=== PATIENT | male | born 1940 | race Caucasian/White ===

== ENCOUNTER → 2017-02-21 | Outpatient (CLI) | payer OTHER ==
[~2017-02-21] MED LIST: ASCO1CAP3 PO; COLE1TAB PO; DOCU-94 PO; FRS/40 PO; IBUP-1451 PO; KETO2CRE14 TOP; LOSA100T2 PO; MOMETASONE FUROATE TOP; MULT-506 PO; OPTIRAY 300 IV PRN; OXYC7.5T78 PO; PROB1TAB16 PO; SULF800T23 PO; [UNRECOGNIZED DRUG - CODE] TOP; [UNRECOGNIZED DRUG - OTHER] INJ
--- NOTE | 2017-02-21 13:31 | DIAGNOSTIC IMAGING REPORT ---
CHEST 2 VIEWS ROUTINE CLINICAL HISTORY: 77 years-old Male presenting with postop, history of bladder cancer. TECHNIQUE: PA and bilateral oblique views of the chest were obtained. COMPARISON: 08/21/2016. FINDINGS: Cardiomediastinal silhouette normal. Pleural thickening along the right lower chest wall, chronic. Lungs and pleural spaces otherwise clear. Osseous structures and upper abdomen normal. IMPRESSION: 1. No acute cardiopulmonary disease. Electronically signed by: Emmanuel Corral M.D. 02/21/2017 1:30 PM Dictated Date/Time: 02/21/2017 1:28 PM
--- NOTE | 2017-02-21 14:20 | DIAGNOSTIC IMAGING REPORT ---
IV PYELOGRAM CLINICAL HISTORY: Gross hematuria. History of bladder neoplasm. History of cystectomy in 2015. COMPARISON STUDY: Abdominal CT scans dated 08/21/2016 and 02/12/2016. TECHNIQUE: An abdominal yarding engineer radiograph is performed. IVP pyelogram was then performed following the IV administration of iodinated contrast, tomographic images are acquired in the corticomedullary and excretory phases of enhancement. Overhead views of the renal collecting system and bladder were obtained in multiple obliquities both pre and post void. FINDINGS: Abdominal yarding engineer radiograph shows a nonobstructed abdominal bowel gas pattern. There is moderate colonic fecal retention. Cholecystectomy clips are noted. The skeletal structures are osteopenic and there is moderate lumbosacral spondylosis. Following contrast administration there is symmetric renal cortical enhancement. There is slightly delayed excretion from the left kidney. There is no right-sided hydronephrosis. There is moderate left-sided hydroureteronephrosis. The left ureter is dilated into the right lower quadrant towards the urine conduit. No filling defects identified within the right renal pelvis or along the course of the right ureter. No clear filling defects identified within the left renal collecting system or the partially opacified left ureter. IMPRESSION: 1. There is moderate left hydroureteronephrosis, with the left ureter dilated into the right lower quadrant at the ileal conduit. 2. There is no right-sided hydronephrosis. 3. No clear filling defect is seen within the renal pelvis bilaterally or along the ureters. 4. Hydronephrosis is similar to the 08/21/2016 CT scan and has worsened from the 02/12/2016 CT scan. There is a questionable filling defect identified in the very distal left ureter on the outside CT scan, and a distal urothelial lesion is not excluded. This is not well assessed on today's IV pyelogram. Electronically signed by: Ankush Colindres M.D. 02/21/2017 2:19 PM Dictated Date/Time: 02/21/2017 2:14 PM
== END | disposition home or self-care (01) ==
LOC: C.RAD 12:20
PROVIDERS: ATTEND Urology
DX: R31.0 Gross hematuria (principal); N13.30 Unspecified hydronephrosis; Z85.51 Personal history of malignant neoplasm of bladder; M85.89 Other specified disorders of bone density and structure, multiple sites

== ENCOUNTER → 2017-03-20 | Day surgery (SDC) | payer OTHER ==
[2017-03-10 10:24] VITALS: BMI 41.0
--- NOTE | 2017-03-10 10:54 | PAT Medication Instructions ---
Service Date Mar 10, 2017. Current Home Medication List Ascorbic Acid (Vitamin C), 500 MG PO QAM Colestipol Hcl (Colestid), 0.5-1 GM PO PRN Docusate Sodium (Colace), 1 CAP PO DAILY PRN for Constipation Furosemide (Lasix), 40 MG PO BID Ibuprofen Tab (Motrin), 800 MG PO TID PRN for N Ketoconazole 2% (Nizoral 2%), 1 DOSE TOP PRN Losartan Potassium & Hydrochlo (Hyzaar), 25 MG PO QPM Multivitamin (Multivitamin), 1 TAB PO QAM Oxycodone/Acetaminophen 5MG/325MG (Percocet 5MG/325MG), 1-2 TABLETS PO Q4 PRN for Pain Probiotic Product (Probiotic), 1 TAB PO QAM [Clotrimazole-Beta], 1 DOSE TOP PRN [Dihydrotesterone], 1 DOSE INJ [id number] [Mometasone Furoate ], 1 DOSE TOP PRN Medication Instructions For Your Scheduled Surgery [Dihydrotesterone], 1 DOSE INJ [id number] (continue as directed) - Check with surgeon for instructions: Ibuprofen Tab (Motrin), 800 MG PO TID PRN for N - Hold the following medications 24 hours prior to surgery: [Mometasone Furoate ], 1 DOSE TOP PRN [Clotrimazole-Beta], 1 DOSE TOP PRN Ketoconazole 2% (Nizoral 2%), 1 DOSE TOP PRN - Hold the following medications the morning of surgery: Probiotic Product (Probiotic), 1 TAB PO QAM Multivitamin (Multivitamin), 1 TAB PO QAM Colestipol Hcl (Colestid), 0.5-1 GM PO PRN Docusate Sodium (Colace), 1 CAP PO DAILY PRN for Constipation Furosemide (Lasix), 40 MG PO BID Ascorbic Acid (Vitamin C), 500 MG PO QAM - Take the following medications the morning of surgery with a sip of water: Oxycodone/Acetaminophen 5MG/325MG (Percocet 5MG/325MG), 1-2 TABLETS PO Q4 PRN for Pain (okay to take up to 4 hours prior to surgery if needed) - Hold the following medications as scheduled the night before surgery: Losartan Potassium & Hydrochlo (Hyzaar), 25 MG PO QPM - Take the following medications as scheduled the night before surgery: Colestipol Hcl (Colestid), 0.5-1 GM PO PRN (if needed) Docusate Sodium (Colace), 1 CAP PO DAILY PRN for Constipation (if needed) Furosemide (Lasix), 40 MG PO BID Oxycodone/Acetaminophen 5MG/325MG (Percocet 5MG/325MG), 1-2 TABLETS PO Q4 PRN for Pain (if needed) If you have any questions please call us at [phone] or [phone] or [phone]
--- NOTE | 2017-03-10 11:25 | DIAGNOSTIC IMAGING REPORT ---
TWO VIEW CHEST CLINICAL HISTORY: Preoperative examination FINDINGS: PA and lateral chest radiographs are compared to study dated 02/21/2017 and correlated with chest CT dated 02/12/2016. The examination is degraded by large body habitus. The heart is top normal in size and there is atherosclerotic calcification of the thoracic aorta. Diffuse interstitial thickening and emphysematous change is similar to previous. Bibasilar airspace opacities likely represent atelectasis. No pleural effusion or pneumothorax is seen. The skeletal structures are osteopenic. The bony thorax is grossly intact. 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 Calcific tendinopathy is noted in the left shoulder. IMPRESSION: 1. Emphysema and chronic changes are similar to previous. 2. Bibasilar airspace opacities likely represent atelectasis. No acute cardiopulmonary abnormality is seen. Electronically signed by: Ankush Colindres M.D. 03/10/2017 11:24 AM Dictated Date/Time: 03/10/2017 11:22 AM
[2017-03-10 12:04] LABS: BASO % 0.4 %; BASO ABS # 0.03 K/uL (0-0.2); COMPLETE YES; HEMATOCRIT 51.3 % (42-52); LYMPH % 12.5 %; LYMPH ABS # 1.01 K/uL (1.2-3.4); MEAN CELL VOLUME 93.1 fL (80-100); MEAN CORPUSCULAR HEMOGLOBIN 29.8 pg (25-34); MEAN PLATELET VOLUME 9.1 fL (7.4-10.4); MONO % 7.4 %; NEUT % 76.7 %; PLATELET COUNT 204 K/uL (130-400); RED BLOOD COUNT 5.51 M/uL (4.7-6.1); WHITE BLOOD COUNT 8.09 K/uL (4.8-10.8)
[2017-03-10 12:14] LABS: BUN/CREATININE RATIO 21.5 (10-20); CALCIUM 9.6 mg/dl (8.5-10.1); CREATININE 1.2 mg/dl (0.60-1.40); POTASSIUM 4.5 mmol/L (3.5-5.1)
[2017-03-10 12:17] LABS: URINE APPEARANCE TURBID (CLEAR); URINE BILIRUBIN NEG (NEG); URINE COLOR YELLOW; URINE EPITHELIAL CELL AUTO >30 /lpf (0-5); URINE NITRITE POS (NEG); URINE PH >= 9.0 (4.5-7.5); URINE SPECIFIC GRAVITY 1.014 (1.000-1.030); UROBILINOGEN NEG (NEG)
[2017-03-10 12:37] LABS: MANUAL MICROSCOPIC REQUIRED? NO; REVIEW REQ? YES; SULFASALICYLIC ACID NEG (NEG)
[~2017-03-20] VITALS: Ht 177.8 cm; Wt 131.3 kg
[~2017-03-20] MED LIST changes: +ATROPINE SULFATE 0.1 MG/ML 5ML SYR IV PRN; +CEFAZOLIN 3000 MG/65 ML D5W IV SCH; +CIPROFLOXACIN / D5W 400 MG IV SCH; +CONRAY 30% 150ML BOTTLE ONE; +EpHEDrine SULFATE INJ 50 MG/ML AMP IV PRN; +FENTANYL CITRATE INJ 50 MCG/1 ML 2 ML VIAL IV PRN; +FENTANYL CITRATE INJ 50 MCG/1 ML 2 ML VIAL ONE; +FLUMAZENIL 0.1 MG/1 ML 10 ML VIAL IV PRN; +GENTAMICIN INJ 120 MG in DEXTROSE 5% 100ML 100 ML IV SCH; +LABETALOL HCL IV 5 MG/ML 20ML IV PRN; +LACTATED RINGER'S 1000ML 1,000 ML IV SCH; +LARYING-O-JET KIT (LTA) ONE; +LIDOCAINE HCL 2% 2 ML VIAL (20MG/ML) ONE; +NALOXONE HCL 0.4 MG/1 ML VIAL/CARP IV PRN; +ONDANSETRON INJ 2 MG/ML 2 ML VIAL IV PRN; -OPTIRAY 300 IV PRN; +OXYCODONE/ACETAMINOPHEN 5-325 TAB PO PRN; +PHENYLEPHRINE 100MCG/ML 5ML SYR ONE; +PHENYLEPHRINE HCL INJ 10 MG/ML VIAL ONE; +PROMETHAZINE HCL INJ 12.5 MG in SODIUM CHLORIDE 0.9% 50ML 50 ML IV PRN; +PROPOFOL IV EMULSION 10 MG/ML 20 ML VIAL IV ONE; +ROCURONIUM BROMIDE 10 MG/ML 5 ML VIAL IV ONE; +SUCCINYLCHOLINE CHLORIDE 20 MG/ML 10 ML VIAL IV ONE
[2017-03-20 09:44] VITALS: Ht 177.8 cm; Wt 131.3 kg
--- NOTE | 2017-03-20 11:58 | History & Physical Bridge Note ---
H&P Re-Evaluation Bridge Note: I have examined the patient, reviewed the History & Physical and in the interval since the performance of the History & Physical I have noted the following changes of clinical significance: No changes noted
--- NOTE | 2017-03-20 14:33 | Discharge Instructions ---
Discharge Instructions Date of Service Mar 20, 2017. Admission Reason for Admission: Left Hydronephrosis & Bladder Cancer Discharge Discharge Diagnosis / Problem: Left ureteral stricture Discharge Goals Goal(s): Improve function, Improve disease control, Therapeutic intervention Activity Recommendations Activity Limitations: as noted below Lifting Limitations: no more than 25 pounds, gradually increase as tolerated ( over 5 days) Exercise/Sports Limitations: rest today, gradually increase as tolerated (over 5 days) May Resume Sexual Activity: when tolerated Shower/Bathe: tomorrow (no tub bath) Driving or Machine Use: resume 1 day after discharge . Instructions / Follow-Up Instructions / Follow-Up In [place] office Mar 24 at 10:[address] Uribe for removal of nephrostomy tube. As scheduled Apr 02 at 10:[address] Glez for postop check. Discharge Diet Recommended Diet: Regular Diet (good fluid intake) Procedures Procedures Performed: Percutaneous Antegrade Pyelogram and Ureteroscopy; Ureteral Balloon Dilation; Placement of Ureteral Stent and Nephrostomy Tube; Nephrostogram for Placement of Nephrostomy Tube Pending Studies Studies pending at discharge: no Medical Emergencies . Who to Call and When: Medical Emergencies: If at any time you feel your situation is an emergency, please call 911 immediately. . Non-Emergent Contact Non-Emergency issues call your: Urologist Call Non-Emergent contact if: you have a fever, temperature is above 101, your pain is not controlled, your pain is worsening, your pain is unusual for you, your pain is concerning you, you have any medication questions . . "Provider Documentation" section prepared by John Glez. . VTE Core Measure Inpt VTE Proph given/why not?: SCD's
--- NOTE | 2017-03-20 14:40 | [facility] Operative Report ---
Operative Report Operative Date Mar 20, 2017. Pre-Operative Diagnosis History of Bladder Cancer and Ileal conduit with Progressive Left Hydronephrosis Post-Operative Diagnosis Left Ureteral Stricture, no tumor noted Procedure(s) Performed Percutaneous Antegrade Pyelogram and Ureteroscopy; Ureteral Balloon Dilation; Placement of Ureteral Stent and Nephrostomy Tube; Nephrostogram for Placement of Nephrostomy Tube Surgeon Dr. Omar Glez Furniture Designer Surgeon(s) Dr. Deng Uribe Estimated Blood Loss 5 cc Findings Ureteral stenosis with no tumor on antegrade pyelography or direct visualization with ureteroscope, balloon dilated x 3 minutes over 2 contiguous areas of ureter, good stent and 10fr nephrostomy position on fluoroscopy. Specimens None per surgeon Drains 7 fr 28 cm single J ureteral stent distal loop removed, 10 fr nephrostomy Anesthesia GAET Complication(s) None Disposition Recovery Room / PACU Indications Patient is a 77-year-old male who is approximately 2 years status post robotic cystectomy for aggressive bladder cancer. He has been ALONDRA since but has been found to have progressive left-sided hydronephrosis on serial imaging this year. Nephrostomy tube is being placed for renal decompression and patient is being brought in for antegrade evaluation of the obstructed area with the expected findings of tumor versus stricture. Please see H&P for further details. Patient was double covered with antibiotics intravenously and SCDs used for DVT prophylaxis. Description of Procedure Patient was properly identified and brought to the operative suite after identification of appropriate consent of the chart. General anesthesia with endotracheal intubation was initiated and patient was prepped and draped in the standard fashion for this procedure. Full timeout procedure was followed. Patient was placed in a left flank up lateral position on a beanbag with generously padded pressure points an axillary roll. Care was taken to avoid hyperextension of his arm seen his previous history of neuropraxia. Using fluoroscopic guidance a nephrostogram was performed via the patient's indwelling nephrostomy tube. This demonstrated opacification of the collecting system and the ureter could be traced to the point of obstruction in proximity to the ileal conduit. Using a commodity specialist ureteral catheter a sensor tip wire was able to be advanced down the ureter and this was able to be passed into the ileal conduit without difficulties. A dual-lumen catheter was advanced into the kidney and a second working sensor tip wire was able to be advanced without difficulties or resistance. 15 blade was used to enlarge skin incision around the wires and a 07/10 25 cm ureteral access sheath was advanced into the lower pole calyx with a nephrostomy tube in placed. This was followed by a flexible fiberoptic ureteroscope which was able to be navigated down the ureter and to the level of obstruction. At this point bland stricture of the ureter was noted with no evidence of mucosal abnormality or papillary tumor. Retrogrades performed through the ureteroscope confirmed smooth, bland approximately 3 cm obstruction of the ureter. This was felt to be most consistent with stricture. No biopsies were taken. Working wire was replaced and ureteroscope was backloaded out of the access sheath. A 15 [place] ureteral balloon dilator was advanced under fluoroscopic guidance and on 2 separate passes for 3 minutes apiece ureteral stricture was dilated to 14 anabelle. The stenotic area could be seen opening up on fluoroscopy. After this was complete a 7 [place] 28 cm ureteral stent was used to stent the obstructed ureter after removing the distal coil to discourage peristalsis out of the ileal conduit. This was also appreciated to be in good position on fluoroscopic evaluation. A 10 [place] loupe nephrostomy tube was advanced into the renal pelvis after re-opacifying it with contrast. This was also noted to be in good position and not engaged with the ureteral stent. Nephrostogram after completion of case demonstrated easy flow of contrast through the ureter into the ileal conduit. Nephrostomy tube was clamped seen the patency of the stent. Sterile dressings were placed and anesthesia was reversed. Patient was transferred to the recovery room in stable condition. Follow-up care: Patient will be discharged home with prescription for Bactrim. We'll remove the nephrostomy in approximately 5 days' time as long as he maintains asymptomatic. Postoperative appointments are confirmed. Patient's instructed to contact our service should he note any fevers, chills, nausea, vomiting or other difficulties in the postoperative period I attest to the content of the Intraoperative Record and any orders documented therein. Any exceptions are noted below.
[2017-03-20 15:20] VITALS: BP 187/82; PULSE 90; TEMP 36.6; O2SAT 95
--- NOTE | 2017-03-20 15:33 | Anesthesiology Progress Note ---
Anesthesia Post Op Note Date & Time Mar 20, 2017 at 15:33 Vital Signs Pain Intensity: 0 Vital Signs Past 12 Hours Date Time Temp Pulse Resp B/P (MAP) Pulse Ox O2 Delivery O2 Flow Rate FiO2 03/20/17 15:10 36.1 88 20 156/82 92 Room Air 03/20/17 15:05 85 20 156/82 92 Room Air 03/20/17 14:55 81 20 181/96 94 Room Air 03/20/17 14:47 82 20 169/80 94 Room Air 03/20/17 14:35 76 20 169/100 100 Mask 10 03/20/17 14:25 74 18 170/97 100 Mask 10 03/20/17 14:16 36.5 72 18 183/91 100 Mask 10 Notes Mental Status: alert / awake / arousable, participated in evaluation Pt Amnestic to Procedure: Yes Nausea / Vomiting: adequately controlled Pain: adequately controlled Airway Patency, RR, SpO2: stable & adequate BP & HR: stable & adequate Hydration State: stable & adequate Anesthetic Complications: no major complications apparent
[2017-03-20 15:50] VITALS: BP 175/83; PULSE 88; O2SAT 95
[2017-03-20 16:20] VITALS: BP 168/82; PULSE 102; TEMP 36.6; O2SAT 95
--- NOTE | 2017-03-21 11:35 | DIAGNOSTIC IMAGING REPORT ---
RETROGRADE INCLUDES KUB HISTORY: URETEROSCOPY, STENT PLACEMENT FLUOROSCOPY TIME: 7 minutes and 28 seconds FINDINGS: 10 fluoroscopic spot images were submitted for review. Initial image demonstrates contrast opacification of the left renal collecting system and ureter through the indwelling percutaneous prostate tube on the left. A ureteral stent is identified. A balloon sweep was performed. IMPRESSION: Fluoroscopy provided for left ureteroscopy and stent placement. Electronically signed by: Surya Bonds M.D. 03/21/2017 11:34 AM Dictated Date/Time: 03/21/2017 11:32 AM
== END | disposition home or self-care (01) ==
LOC: C.ACU 09:22
PROVIDERS: ATTEND Urology
DX: N40.1 Benign prostatic hyperplasia with lower urinary tract symptoms (principal); N13.8 Other obstructive and reflux uropathy; C67.9 Malignant neoplasm of bladder, unspecified; N35.9 Urethral stricture, unspecified; N39.0 Urinary tract infection, site not specified; M19.90 Unspecified osteoarthritis, unspecified site; I10 Essential (primary) hypertension; Z98.42 Cataract extraction status, left eye; Z90.49 Acquired absence of other specified parts of digestive tract; Z83.3 Family history of diabetes mellitus; Z87.891 Personal history of nicotine dependence; J44.9 Chronic obstructive pulmonary disease, unspecified; Z85.51 Personal history of malignant neoplasm of bladder; Z85.46 Personal history of malignant neoplasm of prostate; E66.01 Morbid (severe) obesity due to excess calories

== ENCOUNTER → 2017-08-11 | Outpatient (CLI) | payer OTHER ==
[~2017-08-11] MED LIST changes: -ATROPINE SULFATE 0.1 MG/ML 5ML SYR IV PRN; -CEFAZOLIN 3000 MG/65 ML D5W IV SCH; -CIPROFLOXACIN / D5W 400 MG IV SCH; -CONRAY 30% 150ML BOTTLE ONE; -EpHEDrine SULFATE INJ 50 MG/ML AMP IV PRN; -FENTANYL CITRATE INJ 50 MCG/1 ML 2 ML VIAL IV PRN; -FENTANYL CITRATE INJ 50 MCG/1 ML 2 ML VIAL ONE; -FLUMAZENIL 0.1 MG/1 ML 10 ML VIAL IV PRN; -GENTAMICIN INJ 120 MG in DEXTROSE 5% 100ML 100 ML IV SCH; -LABETALOL HCL IV 5 MG/ML 20ML IV PRN; -LACTATED RINGER'S 1000ML 1,000 ML IV SCH; -LARYING-O-JET KIT (LTA) ONE; -LIDOCAINE HCL 2% 2 ML VIAL (20MG/ML) ONE; -NALOXONE HCL 0.4 MG/1 ML VIAL/CARP IV PRN; -ONDANSETRON INJ 2 MG/ML 2 ML VIAL IV PRN; +OPTIRAY 300 IV PRN; -OXYC7.5T78 PO; -OXYCODONE/ACETAMINOPHEN 5-325 TAB PO PRN; -PHENYLEPHRINE 100MCG/ML 5ML SYR ONE; -PHENYLEPHRINE HCL INJ 10 MG/ML VIAL ONE; -PROMETHAZINE HCL INJ 12.5 MG in SODIUM CHLORIDE 0.9% 50ML 50 ML IV PRN; -PROPOFOL IV EMULSION 10 MG/ML 20 ML VIAL IV ONE; -ROCURONIUM BROMIDE 10 MG/ML 5 ML VIAL IV ONE; -SUCCINYLCHOLINE CHLORIDE 20 MG/ML 10 ML VIAL IV ONE
--- NOTE | 2017-08-11 14:26 | DIAGNOSTIC IMAGING REPORT ---
IVP W/OR W/O TOMOGRAMS CLINICAL HISTORY: N13.30 Hydronephrosis. Follow-up. COMPARISON STUDY: IVP 05/30/2017. FINDINGS: Cash Poster films demonstrate removal of the left-sided ureteral stent. The patient is status post prior cystectomy with ileal loop diversion and a right lower quadrant ostomy site. Following the intravenous injection of contrast there is prompt and symmetric perfusion of the kidneys. No hydronephrosis. No suspicious filling defects within the opacified renal collecting systems or ureters. The ureters extend to the right lower quadrant ostomy site. IMPRESSION: 1. Postsurgical changes consistent with prior cystectomy and right lower quadrant ileal conduit. 2. No hydronephrosis. 3. The left ureteral stent has been removed. Electronically signed by: Surya Bonds M.D. 08/11/2017 2:19 PM Dictated Date/Time: 08/11/2017 2:17 PM
== END | disposition home or self-care (01) ==
LOC: C.RAD 12:04
PROVIDERS: ATTEND Urology
DX: Z93.6 Other artificial openings of urinary tract status (principal)

== ENCOUNTER → 2017-12-05 | Outpatient (CLI) | payer OTHER ==
[~2017-12-05] MED LIST changes: -SULF800T23 PO
--- NOTE | 2017-12-05 15:31 | DIAGNOSTIC IMAGING REPORT ---
IVP W/OR W/O TOMOGRAMS HISTORY: 77 years-old Male N13.30 [id number] Bladder [id number] history of prior cystectomy COMPARISON: IVP 08/11/2017 TECHNIQUE: IVP with tomograms was obtained utilizing 100 mL Optiray 300 FINDINGS: District Court Administrator image demonstrates surgical clips of the right upper abdomen suggesting prior cholecystectomy. Nonobstructive bowel gas pattern. Severe degenerative changes about the lumbar spine. No definite urolith identified. There is prompt and symmetric perfusion of the bilateral kidneys. No hydronephrosis or focal filling defects identified within the collecting systems. Evidence of prior cystectomy with right lower quadrant ileal conduit. Contrast in the bilateral ureters and renal collecting systems noted on the postvoid image. Ureters extends to the right lower quadrant ileostomy site. IMPRESSION: 1. Postoperative changes from prior cystectomy with right lower quadrant ileal conduit. 2. No hydronephrosis or suspicious filling defects identified. The above report was generated using voice recognition software. It may contain grammatical, syntax or spelling errors. Electronically signed by: Jimy Todd M.D. 12/05/2017 3:29 PM Dictated Date/Time: 12/05/2017 3:24 PM
== END | disposition home or self-care (01) ==
LOC: C.RAD 12:31
PROVIDERS: ATTEND Urology
DX: C67.9 Malignant neoplasm of bladder, unspecified (principal); N13.30 Unspecified hydronephrosis

== ENCOUNTER 2021-05-27 00:19 | Inpatient (IN) ==
[2021-05-27] MEDS ORDERED: dexAMETHasone**PF** 10 MG/ML VIAL IV ONE (00:35)
[2021-05-27 00:58] LABS: Basophils # (auto) 0.03 K/uL (0-0.2); Basophils % (auto) 0.3 %; Eosinophils # (auto) 0.15 K/uL (0-0.5); Eosinophils % (auto) 1.7 %; Hematocrit (blood only) 41.9 % (42-52); Immature Granulocytes % (auto) 2.3 %; Lymphocytes # (auto) 0.68 K/uL (1.2-3.4); Lymphocytes % (auto) 7.9 %; Mean Corpuscular Hemoglobin 30.4 pg (25-34); Mean Corpuscular Hgb Conc 33.4 g/dL (32-36); Mean Corpuscular Volume 90.9 fL (80-100); Mean Platelet Volume 9.2 fL (7.4-10.4); Monocytes # (auto) 0.64 K/uL (0.11-0.59); Monocytes % (auto) 7.5 %; Neutrophils # (auto) 6.88 K/uL (1.4-6.5); Neutrophils % (auto) 80.3 %; Platelet Count 290 K/uL (130-400); RDW Coefficient of Variation 14.2 % (11.5-14.5); RDW Standard Deviation 47.2 fL (36.4-46.3); Red Blood Count 4.61 M/uL (4.7-6.1); White Blood Count 8.58 K/uL (4.8-10.8)
--- NOTE | 2021-05-27 01:31 | Emergency Department Note ---
Impression & Plan 2019 novel coronavirus-infected pneumonia (NCIP), Hypoxia, Weakness, Decrease in appetite, Cough ED Provider Note Provider: Young Traore MD DATE OF SERVICE: 05/26/2021 CHIEF COMPLAINT: Shortness breath, weakness, decreased appetite HISTORY OF PRESENT ILLNESS: Patient is a 81-year-old gentleman past medical history including prostatectomy with history of bladder cancer, and UTI presenting here today brought by family due to worsening weakness, shortness of breath, and some decreased appetite. Patient himself states he feels very fatigued. Patient states is not vaccinated for Covid. Patient denies significant chest pain or abdominal pain. Denies significant nausea vomiting or diarrhea. Patient denies significant headache at this time. Patient states he has been very weak and had a minor fall the other day but denies falling today. Denies striking his head during this. Patient asked that I get additional information from his daughter via phone. Breathing is worse with exertion Daughter Katelynn was contacted reports that he initially began to have symptoms about 3 weeks ago with limited appetite and not eating as well. Then developed a bit of runny nose and cough and tested positive on May 18 for Covid. Receive the Covid monoclonal antibody on May 22 and his primary doctor put him on some albuterol and Pulmicort nebulized treatments. The patient did not tolerate these well and refused more of them and has not had them in several days. They got a pulse ox today and noted that his pulse ox at home was doing 80 to 87%. They were unsure how long he may have been here as again they just received this pulse ox today. Patient has also been noted to be more fatigued and sleeping more although the patient himself states while he has been very fatigued he is not actually getting restful sleep. Over the last several days there have been some minor low-grade fevers but the higher fevers earlier in the course have resolved. REVIEW OF SYSTEMS: A total of 10 review of systems was obtained and negative except as stated above in the HPI. PAST MEDICAL HISTORY: As noted above MEDICATIONS: Reviewed home medications SOCIAL HISTORY: Distant former smoker, lives at home with PHYSICAL EXAM: GENERAL: alert and oriented in no acute distress on stretcher but quite fatigued appearing Head: normocephalic and atraumatic EYES: No injection, discharge or icterus. NECK: Trachea midline. Supple. ENT: Mucous membranes pink and moist. LUNGS: Airway patent. No retractions but moderately tachypneic. Breath sounds clear with good air entry bilaterally. HEART: Regular rate and rhythm. No chest wall tenderness ABDOMEN: Soft and non-tender, without guarding or rebound patient does have a anterior abdominal wall urostomy site. SKIN: Acyanotic, warm, dry, without rashes EXTREMITIES: patient reports chronic stable 1+ lower extremity edema. No si gnificant tenderness of the lower extremities. NEUROLOGICAL: No aphasia. No facial droop or slurred speech. Able to transfer from wheelchair to bed with minimal assist but a bit unsteady. Patient with chronic he reports weakness in the right upper extremity. EK bpm sinus rhythm with first-degree AV block. Right bundle branch and left anterior fascicular block is noted without acute ST segment elevation with some V1 and V2 T wave inversions noted. QTc 488. CONTINUOUS CARDIAC MONITORING: was ordered and showed a heart rate of 70s to 90sbpm in sinus rhythm with right bundle branch block and first-degree AV block 1 view chest x-ray per my interpretation:Patient with some diffuse infiltrate findings on the x-ray consistent with a viral pattern/COVID without significant pleural effusions or pneumothorax. No significant cardiomegaly noted. Patient's laboratory studies and imaging reviewed. Differential includes Infection, dehydration, metabolic abnormality, hypo/hyperglycemia, electrolyte disturbance, anemia, hypoxia, cardiac sources, intracerebral event, toxicologic, neurologic, as well as other pathologies. IMPRESSION/MEDICAL DECISION MAKING: Patient not vaccinated for Covid now about 3 weeks of the symptoms with shortness of breath found to be hypoxic. Requiring several liters of oxygen supplementation here. Some mild chronic lower extremity edema but no gross ev idence of fluid overload. Patient with benign abdomen denies chest pain. EKG obtained without acute STEMI. Chest x-ray concerning for diffuse inflammatory process. Patient afebrile upon arrival here. No significant anemia and no significant leukocytosis is noted. Repeat Covid test to confirm infection was completed here. Patient again was notable to receive the monoclonal antibody on the . Sodium, calcium, and renal function appears stable. ALT not elevated. Troponin is undetectably low which is somewhat reassuring given his hypoxia of unknown duration with this illness. TSH within normal limits. AST, magnesium, potassium be recollected as the initial tube hemolyzed. Given his weakness and fatigue believe this is likely related to Covid and lower suspicion at this time for acute aortic dissection (patient is pain-free) or PE. Updated the patient at bedside. Did update the patient's daughter upon initial evaluation of his need for hospitalization and oxygen use. Will defer any additional IV fluid supplementation at this point as he does not appear hypovolemic. The hospitalist be consulted for further inpatient care. Patient's daughter to call with med list when she gets home. DIAGNOSIS: COVID-19 pneumonia, hypoxia, weakness DISPOSITION: Hospitalist will evaluate Patient was agreeable with this plan. Contact Patient's daughter Katelynn at home phone in chart as needed. Past Med/Surg History Surgical History History of cataract surgery History of cholecystectomy Family History Grandmother Diabetes Family/Other Diabetes Cancer Brother Cancer Sister Cancer Social History Smoking Status: Former smoker Tobacco Type: Cigarettes Hx Alcohol Use: No marital status: current occupational status: retired Feels Safe at Home: Yes Allergies Allergies Allergy/AdvReac Type Severity Reaction Status Date / Time Cipro Allergy Unknown HIVES Verified 03/20/17 09:49 ciprofloxacin Allergy Unknown HIVES Verified 03/30/21 09:57 Home Meds Home Medications Medication Instructions Recorded Confirmed CLOTRIMAZOLE-BETA 1 dose TOPICAL PRN #0 08/19/14 03/30/21 Furosemide (Lasix) 40 mg PO BID #0 tab 08/19/14 03/30/21 Ketoconazole 2% (Nizoral 2%) 1 dose TOPICAL PRN #0 08/19/14 03/30/21 MOMETASONE FUROATE 1 dose TOPICAL PRN #0 08/19/14 03/30/21 Multivitamin 1 tab PO QAM #0 tab 08/19/14 03/30/21 LOSARTAN POTASSIUM & HYDROCHLO 25 mg PO QPM #0 09/01/14 03/30/21 (HYZAAR) DOCUSATE SODIUM (COLACE) 1 cap PO DAILY PRN 30 Days #60 cap 03/21/15 03/30/21 ASCORBIC ACID (VITAMIN C) 500 mg PO QAM #0 03/10/17 03/30/21 COLESTIPOL HCL (COLESTID) 0.5 - 1 g PO PRN #0 tab 03/10/17 03/30/21 DIHYDROTESTERONE 1 dose INJ [id number] #0 03/10/17 03/30/21 Ibuprofen Tab (MOTRIN) 800 mg PO TID PRN #0 tab 03/10/17 03/30/21 PROBIOTIC PRODUCT (PROBIOTIC) 1 tab PO QAM #0 03/10/17 03/30/21 Saccharomyces boulardii 250 mg mg PO 11/16/19 03/30/21 capsule ascorbic acid (vitamin C) 500 mg PO 11/16/19 03/30/21 tablet clotrimazole-betamethasone 1 applic TOP 11/16/19 03/30/21 %-0.05 % topical cream colestipol 1 gram tablet g PO 11/16/19 03/30/21 dihydrotestosterone prop(bulk) 100 % MS 11/16/19 03/30/21 % powder docusate sodium 100 mg capsule 100 mg PO BID cap 11/16/19 03/30/21 furosemide 80 mg tablet mg PO 11/16/19 03/30/21 hydralazine 50 mg tablet 50 mg PO tab 11/16/19 03/30/21 hydrocodone 5 mg-acetaminophen 325 1 tab PO .COMPLEX tab 11/16/19 03/30/21 mg tablet ketoconazole 2 % topical cream 1 appln TOP gm 11/16/19 03/30/21 losartan 25 mg tablet 25 mg PO DAILY tab 11/16/19 03/30/21 mometasone 0.1 % topical ointment 1 appln TOP gm 11/16/19 03/30/21 multivitamin (Daily Multi-Vitamin) 1 tab PO DAILY 11/16/19 03/30/21 nystatin 100,000 unit/gram topical 1 appln TOP .COMPLEX gm 11/16/19 03/30/21 powder Results & Data (ED) Vital Signs Vital Signs - 24 hr 05/27/21 00:29 05/27/21 00:53 05/27/21 01:05 Temperature 36 C L Temperature Source Temporal Artery Scan Pulse Rate 91 H Pulse Rate [Finger] 87 Respiratory Rate 16 Respiratory Effort / Characteristics Non-Labored Spontaneous Respiratory Depth Normal Blood Pressure 152/76 H Blood Pressure [Left Arm] 154/78 H Blood Pressure Mean 101 Blood Pressure Mean [Left Arm] 103 Pulse Oximetry 89 L 86 L 95 Oxygen Delivery Method Room Air Nasal Cannula Nasal Cannula Oxygen Flow Rate 0 3 Sepsis Recent Fever Within 48 Hours Yes Sepsis New/Unexplained Change in Mental Status No Sepsis Action Taken by Nursing No Action Required Oxygen Flow Rate - Titration 3 Pulse Oximetry Post Tiitration 96 Laboratory Data Result diagrams: 05/27/21 00:49 05/27/21 00:49 Lab Results 05/27/21 05/27/21 05/27/21 Range/Units 00:49 00:49 00:49 WBC 8.58 (4.8-10.8) K/uL RBC 4.61 L (4.7-6.1) M/uL Hgb 14.0 (14.0-18.0) g/dL Hct 41.9 L (42-52) % MCV 90.9 (80-100) fL MCH 30.4 (25-34) pg MCHC 33.4 (32-36) g/dL RDW Std Deviation 47.2 H (36.4-46.3) fL RDW Coeff of Felicia 14.2 (11.5-14.5) % Plt Count 290 (130-400) K/uL MPV 9.2 (7.4-10.4) fL Immature Gran % (Auto) 2.3 % Neut % (Auto) 80.3 % Lymph % (Auto) 7.9 % Reeves % (Auto) 7.5 % Eos % (Auto) 1.7 % Baso % (Auto) 0.3 % Neut # (Auto) 6.88 H (1.4-6.5) K/uL Lymph # (Auto) 0.68 L (1.2-3.4) K/uL Reeves # (Auto) 0.64 H (0.11-0.59) K/uL Eos # (Auto) 0.15 (0-0.5) K/uL Baso # (Auto) 0.03 (0-0.2) K/uL Immature Gran # (Auto) 0.20 H (0.00-0.02) K/uL PT Cancelled INR Cancelled APTT Cancelled PTT Ratio Cancelled Sodium 137 (136-145) mmol/L Potassium (3.5-5.1) mmol/L Chloride 104 (98-107) mmol/L Carbon Dioxide 28 (21-32) mmol/L Anion Gap 5.0 (3-11) BUN 21 H (7-18) mg/dl Creatinine 1.33 (0.6-1.4) mg/dl Est Cr Clr Drug Dosing 59.0 ml/min Est GFR ( Amer) 56.9 ml/min Est GFR (Non-Af Amer) 49.1 ml/min BUN/Creatinine Ratio 16.1 (10-20) Glucose 104 H (70-99) mg/dl Calcium 9.1 (8.5-10.1) mg/dl Magnesium (1.8-2.4) mg/dl Total Bilirubin 0.7 (0.2-1) mg/dl AST (15-37) U/L ALT 47 (12-78) U/L Alkaline Phosphatase 102 (45-117) U/L Troponin I < 0.015 (0-0.045) ng/ml Total Protein 8.0 (6.4-8.2) gm/dl Albumin 2.3 L (3.4-5.0) gm/dl Globulin 5.7 H (2.5-4.0) gm/dl Albumin/Globulin Ratio 0.4 L (0.9-2) TSH 0.362 (0.300-4.500) uIu/ml COVID-19 Eval Order 05/27/21 Range/Units 00:49 WBC (4.8-10.8) K/uL RBC (4.7-6.1) M/uL Hgb (14.0-18.0) g/dL Hct (42-52) % MCV (80-100) fL MCH (25-34) pg MCHC (32-36) g/dL RDW Std Deviation (36.4-46.3) fL RDW Coeff of Felicia (11.5-14.5) % Plt Count (130-400) K/uL MPV (7.4-10.4) fL Immature Gran % (Auto) % Neut % (Auto) % Lymph % (Auto) % Reeves % (Auto) % Eos % (Auto) % Baso % (Auto) % Neut # (Auto) (1.4-6.5) K/uL Lymph # (Auto) (1.2-3.4) K/uL Reeves # (Auto) (0.11-0.59) K/uL Eos # (Auto) (0-0.5) K/uL Baso # (Auto) (0-0.2) K/uL Immature Gran # (Auto) (0.00-0.02) K/uL PT INR APTT PTT Ratio Sodium (136-145) mmol/L Potassium (3.5-5.1) mmol/L Chloride (98-107) mmol/L Carbon Dioxide (21-32) mmol/L Anion Gap (3-11) BUN (7-18) mg/dl Creatinine (0.6-1.4) mg/dl Est Cr Clr Drug Dosing ml/min Est GFR ( Amer) ml/min Est GFR (Non-Af Amer) ml/min BUN/Creatinine Ratio (10-20) Glucose (70-99) mg/dl Calcium (8.5-10.1) mg/dl Magnesium (1.8-2.4) mg/dl Total Bilirubin (0.2-1) mg/dl AST (15-37) U/L ALT (12-78) U/L Alkaline Phosphatase (45-117) U/L Troponin I (0-0.045) ng/ml Total Protein (6.4-8.2) gm/dl Albumin (3.4-5.0) gm/dl Globulin (2.5-4.0) gm/dl Albumin/Globulin Ratio (0.9-2) TSH (0.300-4.500) uIu/ml COVID-19 Eval Order Covid19 at [facility] Administered Medications Discontinued Medications Dexamethasone Sodium Phosphate (DexamethasonePf 10 Mg/Ml Vial) 6 mg IV NOW ONE Stop: 05/27/21 00:36 Last Admin: 05/27/21 00:54 Dose: 6 mg Documented by: [id number] Discharge Plan Visit Data Chief Complaint: Shortness of Breath/Dyspnea Stated Complaint: +COVID,SOB,NOT EATING ED Provider: Young Traore Discharge Problem: 2019 novel coronavirus-infected pneumonia (NCIP), Hypoxia, Weakness, Decrease in appetite, Cough Patient Disposition: Admitted As Inpatient Forms Stand Alone Forms: My [facility] Prescriptions Prescriptions: No Action Furosemide (Lasix) 40 MG tablet 40 mg PO BID Qty: 0 RF: 0 Ketoconazole 2% (Nizoral 2%) cream 1 dose Topical PRN Qty: 0 RF: 0 Multivitamin tablet 1 tab PO QAM Qty: 0 RF: 0 CLOTRIMAZOLE-BETA 1 dose Topical PRN Qty: 0 RF: 0 MOMETASONE FUROATE 1 dose Topical PRN Qty: 0 RF: 0 LOSARTAN POTASSIUM & HYDROCHLO (HYZAAR) 1 TAB tablet 25 mg PO QPM Qty: 0 RF: 0 DOCUSATE SODIUM (COLACE) 100 MG capsule 1 cap PO DAILY PRN (Reason: Constipation) 30 Days Qty: 60 RF: 0 ASCORBIC ACID (VITAMIN C) 500 MG capsule 500 mg PO QAM Qty: 0 RF: 0 COLESTIPOL HCL (COLESTID) 1 GM tablet 0.5 - 1 g PO PRN Qty: 0 RF: 0 Ibuprofen Tab (MOTRIN) 800 MG tablet 800 mg PO TID PRN (Reason: N) Qty: 0 RF: 0 PROBIOTIC PRODUCT (PROBIOTIC) 1 TAB tablet 1 tab PO QAM Qty: 0 RF: 0 DIHYDROTESTERONE 1 dose INJ [id number] Qty: 0 RF: 0 multivitamin [Daily Multi-Vitamin] Tablet 1 tab PO DAILY RF: 0 docusate sodium 100 mg capsule 100 mg PO BID RF: 0 dihydrotestosterone prop(bulk) 100 % powder MS RF: 0 ascorbic acid (vitamin C) 500 mg tablet PO RF: 0 furosemide 80 mg tablet PO RF: 0 clotrimazole-betamethasone 1-0.05 % cream TOP RF: 0 losartan 25 mg tablet 25 mg PO DAILY RF: 0 mometasone 0.1 % ointment 1 appln TOP RF: 0 hydrocodone-acetaminophen 5-325 mg tablet 1 tab PO .COMPLEX RF: 0 Saccharomyces boulardii 250 mg capsule PO RF: 0 colestipol 1 gram tablet PO RF: 0 ketoconazole 2 % cream 1 appln TOP RF: 0 hydralazine 50 mg tablet 50 mg PO RF: 0 nystatin 100,000 unit/gram powder 1 appln TOP .COMPLEX RF: 0 Referrals Referrals: Noam Briones, [Primary Care Provider] -
[2021-05-27 01:32] LABS: Alanine Aminotransferase 47 U/L (12-78); Albumin Globulin Ratio 0.4 (0.9-2); Albumin Level 2.3 gm/dl (3.4-5.0); Alkaline Phosphatase 102 U/L (45-117); BUN Creatinine Ratio 16.1 (10-20); Bilirubin,Total 0.7 mg/dl (0.2-1); Blood Urea Nitrogen 21 mg/dl (7-18); Carbon Dioxide 28 mmol/L (21-32); Chloride 104 mmol/L (98-107); Est GFR (African American) 56.9 ml/min; Est GFR (Non-African American) 49.1 ml/min; Globulin 5.7 gm/dl (2.5-4.0); Glucose 104 mg/dl (70-99); Sodium 137 mmol/L (136-145); Thyroid Stimulating Hormone 0.362 uIu/ml (0.300-4.500); Troponin I < 0.015 ng/ml (0-0.045)
[2021-05-27 01:34] LABS: Calcium 9.1 mg/dl (8.5-10.1)
[2021-05-27 02:26] LABS: Potassium 3.4 mmol/L (3.5-5.1)
[2021-05-27 02:30] LABS: INR 1.2 (0.9-1.1); Partial Thromboplastin Time 27.1 Seconds (21.0-31.0); Prothrombin Time 11.8 Seconds (9.0-12.0)
[2021-05-27 02:31] LABS: Magnesium 2.2 mg/dl (1.8-2.4)
[2021-05-27] MEDS ORDERED: guaiFENesin/CODEINE 100MG/10MG 5ML UDC PO PRN (02:36)
--- NOTE | 2021-05-27 02:37 | History & Physical Report ---
Date of Service May 27, 2021 Assessment & Plan (1) 2018 novel coronavirus-infected pneumonia (NCIP): Plan: COVID-19 pneumonia with hypoxia- Symptoms began 3 weeks ago. 05/18 first positive COVID-19. Received monoclonal antibody 05/22 Pulse ox 86% on room air, improved to 92% on 4 L nasal cannula Received dexamethasone 6 mg IV in the a.m. Dexamethasone 6 mg IV every morning Duonebs every 4 hours while awake and every 2 hours when necessary. Ceftriaxone 2 g IV daily Azithromycin 500 mg IV daily Guaifenesin with codeine 5 mL p.o. every 3 hours as needed Vitamin D 1000 international units p.o. daily Zinc sulfate 220 mg p.o. daily Nasal cannula oxygen, titrate to keep pulse ox 92 to 94% (2) Hypoxia: Plan: See above (3) Cellulitis of both lower extremities: Plan: Antibiotics as noted above (4) History of prostatectomy: Plan: History of prostatectomy/total cystectomy/ileal conduit (5) H/O total cystectomy: Plan: See above (6) Hypertension: Plan: Hold lisinopril (7) GERD (gastroesophageal reflux disease): Plan: Continue famotidine (8) Lower extremity edema: Plan: Hold furosemide 40 mg p.o. twice daily Furosemide 40 mg IV every morning with first dose now, and continue every morning History of Present Illness Chief Complaint: The patient is brought to the emergency department by family concern regarding worsening generalized weakness, shortness of breath, cough, decreased oral intake and generalized fatigue Primary Care Provider: Noam Briones DO The patient is a an 81-year-old male with a past medical history including BPH with LUTS, lumbar degenerative disc disease, bladder cancer, cholecystectomy, status post prostatectomy, urinary tract infection, hypertension, COPD, GERD, CHF and morbid obesity. The patient initially began to develop the above symptoms about 3 weeks ago, was diagnosed with COVID-19 on 05/18 and received monoclonal antibody on 05/22. He was brought into the emergency department today due to worsening symptoms as noted above. Allergies Allergy/AdvReac Type Severity Reaction Status Date / Time ciprofloxacin Allergy Unknown HIVES Verified 05/27/21 02:33 Home Medications Medication Instructions Recorded Confirmed Type Vitamin D3 Liquid 2 drp PO DAILY 05/27/21 05/27/21 History ascorbic acid (vitamin C) 1,000 mg 1 g PO DAILY 05/27/21 05/27/21 History tablet (Vitamin C) budesonide 0.25 mg/2 mL suspension 0.25 mg INHALATION Q6 PRN 05/27/21 05/27/21 History for nebulization (Pulmicort) diclofenac sodium 75 mg 75 mg PO DAILY 05/27/21 05/27/21 History tablet,delayed release famotidine 20 mg tablet 20 mg PO DAILY 05/27/21 05/27/21 History furosemide 40 mg tablet 40 mg PO BID 05/27/21 05/27/21 History hydroxyzine HCl 25 mg tablet 25 mg PO DAILY PRN 05/27/21 05/27/21 History losartan 25 mg tablet 25 mg PO DAILY 05/27/21 05/27/21 History multivitamin 1 tab PO DAILY 05/27/21 05/27/21 History tobramycin 0.3 %-dexamethasone 0.1 1 drp OPB UD 05/27/21 05/27/21 History % eye drops,suspension Past Med/Surg History Medical History (Updated 05/27/21 @ 03:17 by Alphonso Suarez MD) GERD (gastroesophageal reflux disease) Hypertension Lower extremity edema Surgical History History of cataract surgery History of cholecystectomy Family History Grandmother Diabetes Family/Other Diabetes Cancer Brother Cancer Sister Cancer Social History Smoking Status: Former smoker Tobacco Type: Cigarettes Hx Alcohol Use: No marital status: current occupational status: retired Feels Safe at Home: Yes Review of Systems Review of Systems: The patient denies chest pain, palpitations, change in lower extremity swelling, sore throat, fevers, chills, sweats, nausea, vomiting, diarrhea , constipation, abdominal pain, pelvic pain, blood in urine or stool, dysuria, urinary frequency or urgency, loss of cons ciousness, abnormal bruising or bleeding, focal weakness, numbness or tingling in arms or legs, generalized arthralgias or myalgias, back or neck pain, or night sweats. The review of systems is otherwise negative other than for that already noted above, and at least 10 systems have been reviewed. Physical Exam Physical Exam: The patient is awake, alert and oriented 3, well developed and well nourished, normocephalic and atraumatic, lying in bed, with paroxysmal moderately severe coughing HEENT--PERRL, EOMI, mucous membranes and oropharynx normal Neck--supple. No JVD. No bruits. Thyroid normal, trachea midline, no adenopathy. Heart--normal S1 and S2. No murmurs, rubs or gallops. Lungs--coarse breath sounds bilaterally. Mild respiratory distress, no accessory muscle use. Abdomen--normal bowel sounds and soft. Nontender. Nondistended. Morbidly obese Extremities--1+ bilateral pretibial pitting edema. Mild erythema anterior tibial surfaces bilaterally Dermatologic-- see above Neurologic--cranial nerves II through XII grossly intact. Rheumatologic--normal range of motion. Psychiatric--normal affect. Results & Data Results & Data ([facility]) Vital Signs (Past 12 Hours) Vital Signs Temp Pulse Pulse Resp BP BP Pulse Ox 05/27/21 02:11 89 L 05/27/21 01:05 87 154/78 H 95 05/27/21 00:53 86 L 05/27/21 00:29 96.8 F L 91 H 16 152/76 H 89 L Laboratory Results Laboratory Results WBC 8.58 K/uL (4.8-10.8) 05/27/21 00:49 RBC 4.61 M/uL (4.7-6.1) L 05/27/21 00:49 Hgb 14.0 g/dL (14.0-18.0) 05/27/21 00:49 Hct 41.9 % (42-52) L 05/27/21 00:49 MCV 90.9 fL (80-100) 05/27/21 00:49 MCH 30.4 pg (25-34) 05/27/21 00:49 MCHC 33.4 g/dL (32-36) 05/27/21 00:49 RDW Std Deviation 47.2 fL (36.4-46.3) H 05/27/21 00:49 RDW Coeff of Felicia 14.2 % (11.5-14.5) 05/27/21 00:49 Plt Count 290 K/uL (130-400) 05/27/21 00:49 MPV 9.2 fL (7.4-10.4) 05/27/21 00:49 Immature Gran % (Auto) 2.3 % 05/27/21 00:49 Neut % (Auto) 80.3 % 05/27/21 00:49 Lymph % (Auto) 7.9 % 05/27/21 00:49 [place] % (Auto) 7.5 % 05/27/21 00:49 Eos % (Auto) 1.7 % 05/27/21 00:49 Baso % (Auto) 0.3 % 05/27/21 00:49 Neut # (Auto) 6.88 K/uL (1.4-6.5) H 05/27/21 00:49 Lymph # (Auto) 0.68 K/uL (1.2-3.4) L 05/27/21 00:49 [place] # (Auto) 0.64 K/uL (0.11-0.59) H 05/27/21 00:49 Eos # (Auto) 0.15 K/uL (0-0.5) 05/27/21 00:49 Baso # (Auto) 0.03 K/uL (0-0.2) 05/27/21 00:49 Immature Gran # (Auto) 0.20 K/uL (0.00-0.02) H 05/27/21 00:49 PT 11.8 Seconds (9.0-12.0) 05/27/21 01:57 INR 1.2 (0.9-1.1) H 05/27/21 01:57 APTT 27.1 Seconds (21.0-31.0) 05/27/21 01:57 PTT Ratio 1.0 05/27/21 01:57 Sodium 137 mmol/L (136-145) 05/27/21 00:49 Potassium 3.4 mmol/L (3.5-5.1) L 05/27/21 01:57 Chloride 104 mmol/L (98-107) 05/27/21 00:49 Carbon Dioxide 28 mmol/L (21-32) 05/27/21 00:49 Anion Gap 5.0 (3-11) 05/27/21 00:49 BUN 21 mg/dl (7-18) H 05/27/21 00:49 Creatinine 1.33 mg/dl (0.6-1.4) 10 00:49 Est Cr Clr Drug Dosing 59.0 ml/min 05/27/21 00:49 Est GFR ( Amer) 56.9 ml/min 05/27/21 00:49 Est GFR (Non-Af Amer) 49.1 ml/min 05/27/21 00:49 BUN/Creatinine Ratio 16.1 (10-20) 05/27/21 00:49 Glucose 104 mg/dl (70-99) H 05/27/21 00:49 Calcium 9.1 mg/dl (8.5-10.1) 05/27/21 00:49 Magnesium 2.2 mg/dl (1.8-2.4) 05/27/21 01:57 Total Bilirubin 0.7 mg/dl (0.2-1) 05/27/21 00:49 AST 37 U/L (15-37) 05/27/21 01:57 ALT 47 U/L (12-78) 05/27/21 00:49 Alkaline Phosphatase 102 U/L (45-117) 05/27/21 00:49 Troponin I < 0.015 ng/ml (0-0.045) 05/27/21 00:49 Total Protein 8.0 gm/dl (6.4-8.2) 05/27/21 00:49 Albumin 2.3 gm/dl (3.4-5.0) L 05/27/21 00:49 Globulin 5.7 gm/dl (2.5-4.0) H 05/27/21 00:49 Albumin/Globulin Ratio 0.4 (0.9-2) L 05/27/21 00:49 TSH 0.362 uIu/ml (0.300-4.500) 05/27/21 00:49 COVID-19 Eval Order Covid19 at [facility] 05/27/21 00:49 SARS-CoV-2 (PCR) POSITIVE (Negative) A* 05/27/21 00:49 Code Status & VTE Plan Code Status Full code VTE Prophylaxis Plan VTE Prophylaxis will be ordered: Yes PG Care Time/CCT Total # of Minutes Spent Total Time Spent with Patient: Total time spent is greater than 50% in c oordination of care (as documented) at patient's floor/unit and/or counseling patient: Coding Level of Care Code 81887 Initial Inpt Care Lvl 3 Diagnoses 2019 novel coronavirus-infected pneumonia (NCIP) U07.1; J12.82 Hypoxia R09.02 Cellulitis of both lower extremities L03.115; L03.116 History of prostatectomy Z90.79 H/O total cystectomy Z98.890 Hypertension I10 GERD (gastroesophageal reflux disease) K21.9 Lower extremity edema R60.0
[2021-05-27] MEDS ORDERED: FUROSEMIDE 40 MG/4 ML VIAL IV ONE ×2 (03:21→13:04)
[2021-05-27] MEDS ORDERED: ONDANSETRON INJ 2 MG/ML 2 ML VIAL IV PRN (04:08)
[2021-05-27] MEDS ORDERED: ACETAMINOPHEN 325 MG TAB PO PRN (04:08)
[2021-05-27] MEDS: cefTRIAXone SODIUM 2,000 MG in DEXTROSE 5% 50 ML IV SCH (05:52)
[2021-05-27] MEDS: AZITHROMYCIN 500 MG in DEXTROSE 5% 250 ML IV SCH (05:52)
[2021-05-27] MEDS ORDERED: ALBUT/IPRATROP 3MG/0.5MG NEB 3 ML VIAL NEB SCH (07:00)
[2021-05-27] MEDS ORDERED: ALBUT/IPRATROP 3MG/0.5MG NEB 3 ML VIAL NEB PRN (07:22)
--- NOTE | 2021-05-27 07:55 | Electrocardiogram Report ---
Test Reason : Blood Pressure : / mmHG Vent. Rate : 088 BPM Atrial Rate : 088 BPM P-R Int : 248 ms QRS Dur : 138 ms QT Int : 404 ms P-R-T Axes : 054 -69 050 degrees QTc Int : 488 ms Poor data quality, interpretation may be adversely affected Sinus rhythm with 1st degree A-V block Right bundle branch block Left anterior fascicular block Bifascicular block Poor R wave progression, consider anterior NM vs. lead placement vs. LVH Abnormal ECG When compared with ECG of 10-MAR-2017 11:05, CO interval has increased Confirmed by Paulo Ward ([id number]) on 05/27/2021 7:55:06 AM Referred By: REFERRED SELF Confirmed By:Finn Ward
--- NOTE | 2021-05-27 08:49 | XRay Report ---
XR chest 1V portable CLINICAL HISTORY: Dyspnea, COVID TECHNIQUE: Single frontal radiograph of the chest was obtained. Comparison: Comparison is made to chest 2 views 03/10/2017 FINDINGS: No lines and tubes are seen. The cardiomediastinal silhouette is normal. Multifocal airspace opacitie s are seen. No evidence of pleural effusion or pneumothorax. IMPRESSION: Diffuse airspace opacities compatible with history of viral pneumonia. ACT 112: Negative or not required by law. Electronically signed by: Rj Boggs M.D. 05/27/2021 8:47 AM
[2021-05-27] MEDS: CHOLECALCIFEROL 1,000 UNITS 25 MCG TAB PO SCH (09:02)
[2021-05-27] MEDS: ZINC SULFATE 220 MG CAPSULE PO SCH (09:02)
[2021-05-27] MEDS: FAMOTIDINE 20 MG TAB PO SCH ×2 (09:03→21:52)
[2021-05-27 10:24] LABS: Appearance Urine Cloudy (Clear); Bacteria Urine Automated 3+ (Negative); Bilirubin Urine Negative (Negative); Blood Urine 1+ (Negative); Color Urine Yellow; Glucose Urine UA Negative (Negative); Ketones Urine Trace (Negative); Leukocyte Esterase Urine 3+ (Negative); Nitrite Urine Positive (Negative); RBC Urine Automated 0-4 /hpf (0-4); Specific Gravity Urine 1.013 (1.000-1.030); Urobilinogen Urine Negative (Negative); WBC Urine Automated >30 /hpf (0-5)
[2021-05-27 10:36] LABS: Protein Urine 1+ (Negative)
[2021-05-27] MEDS: dexAMETHasone 6 MG in SYRINGE 0 ML IV SCH (12:12)
--- NOTE | 2021-05-27 12:51 | History & Physical Bridge Note ---
Date of Service May 27, 2021 History & Physical Bridge Note I have examined the patient, reviewed the History & Physical and in the interval since the performance of the History & Physical I have noted the following changes of clinical significance: patient doing well, eating, had a BM, making a lot of urine via urostomy tube after Lasix 40mg IV this morning, will give another dose this afternoon continue dexamethasone and antibiotics he confirmed he got monoclonal antibodies on 05/22 discussed that he will likely be here for a week to recover, might need more oxygen before he gets better
[2021-05-27] MEDS ORDERED: BENZONATATE 100 MG CAPSULE PO ONE (15:33)
[2021-05-27] MEDS: BENZONATATE 100 MG CAPSULE PO SCH (21:52)
[2021-05-28] MEDS: AZITHROMYCIN 500 MG in DEXTROSE 5% 250 ML IV SCH (07:00)
[2021-05-28] MEDS: cefTRIAXone SODIUM 2,000 MG in DEXTROSE 5% 50 ML IV SCH (07:00)
[2021-05-28 07:49] LABS: Basophils # (auto) 0.02 K/uL (0-0.2); Basophils % (auto) 0.2 %; Eosinophils # (auto) 0.01 K/uL (0-0.5); Eosinophils % (auto) 0.1 %; Hematocrit (blood only) 41.6 % (42-52); Hemoglobin 13.4 g/dL (14.0-18.0); Immature Granulocytes # (auto) 0.15 K/uL (0.00-0.02); Immature Granulocytes % (auto) 1.5 %; Lymphocytes # (auto) 0.56 K/uL (1.2-3.4); Lymphocytes % (auto) 5.6 %; Mean Corpuscular Hemoglobin 29.8 pg (25-34); Mean Corpuscular Hgb Conc 32.2 g/dL (32-36); Mean Corpuscular Volume 92.7 fL (80-100); Mean Platelet Volume 9.4 fL (7.4-10.4); Monocytes # (auto) 0.64 K/uL (0.11-0.59); Monocytes % (auto) 6.4 %; Neutrophils # (auto) 8.63 K/uL (1.4-6.5); Neutrophils % (auto) 86.2 %; Platelet Count 350 K/uL (130-400); RDW Coefficient of Variation 14.1 % (11.5-14.5); RDW Standard Deviation 47.7 fL (36.4-46.3); Red Blood Count 4.49 M/uL (4.7-6.1); White Blood Count 10.01 K/uL (4.8-10.8)
[2021-05-28 08:03] LABS: Albumin Level 2.1 gm/dl (3.4-5.0); BUN Creatinine Ratio 22.5 (10-20); C Reactive Protein 8.99 mg/dl (0-0.29); Calcium 9.2 mg/dl (8.5-10.1); Creatinine Clr Calc Pharmacy 61.4 ml/min; Est GFR (African American) 60.7 ml/min; Est GFR (Non-African American) 52.4 ml/min; Potassium 3.9 mmol/L (3.5-5.1)
[2021-05-28 08:06] LABS: Albumin Globulin Ratio 0.4 (0.9-2); Bilirubin,Total 0.3 mg/dl (0.2-1); Total Protein 7.1 gm/dl (6.4-8.2)
[2021-05-28] MEDS: dexAMETHasone 6 MG in SYRINGE 0 ML IV SCH (08:13)
[2021-05-28] MEDS: FAMOTIDINE 20 MG TAB PO SCH ×2 (08:13→20:51)
[2021-05-28] MEDS: FUROSEMIDE 40 MG/4 ML VIAL IV SCH (08:14)
[2021-05-28] MEDS: BENZONATATE 100 MG CAPSULE PO SCH ×3 (08:14→20:51)
[2021-05-28] MEDS: CHOLECALCIFEROL 1,000 UNITS 25 MCG TAB PO SCH (08:14)
[2021-05-28] MEDS: ZINC SULFATE 220 MG CAPSULE PO SCH (08:14)
--- NOTE | 2021-05-28 08:39 | Hospitalist Progress Note ---
Date of Service May 28, 2021 Assessment & Plan (1) 2018 novel coronavirus-infected pneumonia (NCIP): Plan: COVID-19 pneumonia with hypoxia- Symptoms began 3 weeks ago. 05/18 first positive COVID-19. Received monoclonal antibody 05/22 Pulse ox 86% on room air, improved to 92% on 5 L nasal cannula in the ER Dexamethasone 6 mg IV Duonebs every 4 hours while awake and every 2 hours when necessary. Ceftriaxone 2 g IV daily/Azithromycin 500 mg IV daily CXR viewed appears consistent with viral pneumonia Guaifenesin with codeine 5 mL p.o. every 3 hours as needed Vitamin D 1000 international units p.o. daily Zinc sulfate 220 mg p.o. daily Nasal cannula oxygen, titrate to keep pulse ox 92 to 94% (2) Hypoxia: Plan: secondary to viral inflammatory process in lungs, supprotive care (3) Cellulitis of both lower extremities: Plan: Antibiotics as noted above if continues to look improved on 05/29 will de- escalate antibiotics (4) History of prostatectomy: Plan: History of prostatectomy/total cystectomy/ileal conduit (5) H/O total cystectomy: Plan: See above (6) Hypertension: Plan: Holding lisinopril (7) GERD (gastroesophageal reflux disease): Plan: Continue famotidine (8) Lower extremity edema: Plan: Hold furosemide 40 mg p.o. twice daily Furosemide 40 mg IV every morning with first dose now, and continue every morning Appears euvolemic Admission and Anticipated Discharge Date Admission Date: May 27, 2021 Subjective Patient says he is feeling improving "feels a lot better than when he was admitted. He was only here in the hospital after 1 day remains on low-flow oxygen at 5 L saturations are in the high 90s Review of Systems Review of Systems: Mild respiratory distress and fatigue no headache, no visual changes no speech or swallowing issues no chest pain, pressure or palpitations Exertional and conversational shortness of breath, nonproductive cough no abdominal pain, nausea or vomiting, diarrhea or constipation no dysuria, hematuria or frequency no focal joint pain or swelling no back pain, CVA tenderness or radicular pain no bruising, bleeding or rashes no focal signs of weakness or numbness or altered sensation no complaints of anxiety or depression.. Physical Exam Physical Exam: The patient appeared well nourished and normally developed. Vital signs as documented. Head exam is normocephalic atraumatic Neck is without JVD, thyromegaly, or carotid bruits. Lungs bibasilar rales Cardiac exam, Rhythm is regular.. No murmurs, rubs or gallops. Abdominal exam reveals normal bowel sounds, soft non tender, no masses Extremities are nonedematous and both pedal pulses are present Neurologic exam is alert and oriented, is of some palsy to his arm which he said occurred in the postoperative period difficulty lifting his right arm above 90 degrees Skin is with improved lower extremities difficult to tell whether was chronic venous stasis or cellulitis Psychologically is without concerns for anxiety or depression Results & Data Results & Data ([facility]) Vital Signs (Past 12 Hours) Vital Signs Temp Pulse Pulse Resp BP Pulse Ox Pulse Ox 05/28/21 07:41 92 H 05/28/21 06:44 98.2 F 78 18 132/68 91 05/28/21 04:08 94 05/28/21 03:27 97.9 F 74 15 126/83 90 05/27/21 22:48 98.2 F 79 18 151/70 H 90 PG Care Time/CCT Total # of Minutes Spent Total Time Spent with Patient: Total time spent is greater than 50% in coordination of care (as documented) at patient's floor/unit and/or counseling patient: Coding Level of Care Code 65571 Subseq Hosp Care Lvl 2 Diagnoses 2019 novel coronavirus-infected pneumonia (NCIP) U07.1; J12.82 Hypoxia R09.02 Cellulitis of both lower extremities L03.115; L03.116 History of prostatectomy Z90.79 H/O total cystectomy Z98.890 Hypertension I10 GERD (gastroesophageal reflux disease) K21.9 Lower extremity edema R60.0
[2021-05-29] MEDS: cefTRIAXone SODIUM 2,000 MG in DEXTROSE 5% 50 ML IV SCH (05:13)
[2021-05-29] MEDS: AZITHROMYCIN 500 MG in DEXTROSE 5% 250 ML IV SCH (06:17)
--- NOTE | 2021-05-29 06:53 | Hospitalist Progress Note ---
Date of Service May 29, 2021 Assessment & Plan (1) 2019 novel coronavirus-infected pneumonia (NCIP): Plan: COVID-19 pneumonia with hypoxia- Symptoms began 3 weeks ago. 05/18 first positive COVID-19. Received monoclonal antibody 05/22 Pulse ox 86% on room air, improved to 92% on 5 L nasal cannula in the ER Dexamethasone 6 mg IV Duonebs every 4 hours while awake and every 2 hours when necessary. Ceftriaxone 2 g IV daily/Azithromycin 500 mg IV daily CXR viewed appears consistent with viral pneumonia Guaifenesin with codeine 5 mL p.o. every 3 hours as needed Vitamin D 1000 international units p.o. daily Zinc sulfate 220 mg p.o. daily Nasal cannula oxygen, titrate to keep pulse ox 92 to 94% (2) Hypoxia: Plan: secondary to viral inflammatory process in lungs, supprotive care (3) Cellulitis of both lower extremities: Plan: Antibiotics as noted above if continues to look improved on 05/29 will de- escalate antibiotics (4) History of prostatectomy: Plan: History of prostatectomy/total cystectomy/ileal conduit (5) H/O total cystectomy: Plan: See above (6) Hypertension: Plan: Holding lisinopril (7) GERD (gastroesophageal reflux disease): Plan: Continue famotidine (8) Lower extremity edema: Plan: Hold furosemide 40 mg p.o. twice daily Furosemide 40 mg IV every morning with first dose now, and continue every morning Appears euvolemic Admission and Anticipated Discharge Date Admission Date: May 27, 2021 Results & Data Results & Data ([facility]) Vital Signs (Past 12 Hours) Vital Signs Temp Pulse Pulse Resp BP BP Pulse Ox 05/29/21 03:21 97.9 F 86 18 140/63 92 05/28/21 23:25 97.9 F 79 22 135/75 90 05/28/21 19:48 97.7 F 83 22 144/80 H 92 PG Care Time/CCT Total # of Minutes Spent Total Time Spent with Patient: Total time spent is greater than 50% in coordination of care (as documented) at patient's floor/unit and/or counseling patient: Coding Diagnoses 2019 novel coronavirus-infected pneumonia (NCIP) U07.1; J12.82 Hypoxia R09.02 Cellulitis of both lower extremities L03.115; L03.116 History of prostatectomy Z90.79 H/O total cystectomy Z98.890 Hypertension I10 GERD (gastroesophageal reflux disease) K21.9 Lower extremity edema R60.0
[2021-05-29 06:54] LABS: Basophils # (auto) 0.01 K/uL (0-0.2); Basophils % (auto) 0.1 %; Eosinophils # (auto) 0.02 K/uL (0-0.5); Eosinophils % (auto) 0.2 %; Hematocrit (blood only) 40.5 % (42-52); Hemoglobin 13.2 g/dL (14.0-18.0); Immature Granulocytes # (auto) 0.13 K/uL (0.00-0.02); Immature Granulocytes % (auto) 1.4 %; Lymphocytes # (auto) 0.78 K/uL (1.2-3.4); Lymphocytes % (auto) 8.3 %; Mean Corpuscular Hemoglobin 29.7 pg (25-34); Mean Corpuscular Hgb Conc 32.6 g/dL (32-36); Mean Corpuscular Volume 91.2 fL (80-100); Monocytes # (auto) 0.82 K/uL (0.11-0.59); Monocytes % (auto) 8.7 %; Neutrophils # (auto) 7.63 K/uL (1.4-6.5); Neutrophils % (auto) 81.3 %; Platelet Count 362 K/uL (130-400); RDW Standard Deviation 47.1 fL (36.4-46.3); Red Blood Count 4.44 M/uL (4.7-6.1); White Blood Count 9.39 K/uL (4.8-10.8)
[2021-05-29 07:54] LABS: Albumin Level 2.1 gm/dl (3.4-5.0); Calcium 9.2 mg/dl (8.5-10.1); Creatinine Clr Calc Pharmacy 66.2 ml/min; Est GFR (African American) 66.4 ml/min; Est GFR (Non-African American) 57.3 ml/min; Potassium 3.8 mmol/L (3.5-5.1)
[2021-05-29 07:57] LABS: Albumin Globulin Ratio 0.4 (0.9-2); Globulin 4.8 gm/dl (2.5-4.0); Total Protein 6.9 gm/dl (6.4-8.2)
[2021-05-29] MEDS: ZINC SULFATE 220 MG CAPSULE PO SCH (07:59)
[2021-05-29] MEDS: FUROSEMIDE 40 MG/4 ML VIAL IV SCH (07:59)
[2021-05-29] MEDS: BENZONATATE 100 MG CAPSULE PO SCH (07:59)
[2021-05-29] MEDS: dexAMETHasone 6 MG in SYRINGE 0 ML IV SCH (07:59)
[2021-05-29] MEDS: FAMOTIDINE 20 MG TAB PO SCH (07:59)
[2021-05-29] MEDS: CHOLECALCIFEROL 1,000 UNITS 25 MCG TAB PO SCH (07:59)
[2021-05-29 08:03] LABS: Bilirubin,Total 0.3 mg/dl (0.2-1)
--- NOTE | 2021-05-29 16:49 | Discharge Summary ---
Date of Service May 29, 2021 Admission HPI Per Admitting Provider The patient is a an 81-year-old male with a past medical history including BPH with LUTS, lumbar degenerative disc disease, bladder cancer, cholecystectomy, status post prostatectomy, urinary tract infection, hypertension, COPD, GERD, CHF and morbid obesity. The patient initially began to develop the above symptoms about 3 weeks ago, was diagnosed with COVID-19 on 05/18 and received monoclonal antibody on 05/22. He was brought into the emergency department today due to worsening symptoms as noted above. Principal Diagnosis acute hypoxic respiratory failure covid pneumonia Discharge Exam The patient appeared to be improving Vital signs as documented. Lungs are still with rales bilaterally Cardiac exam, Rhythm is regular.. No murmurs, rubs or gallops. Abdominal exam reveals normal bowel sounds, soft non tender, no masses Extremities are trace edematous and both pedal pulses are normal. Neurologic exam is alert and oriented, no focal loss of strength or sensation Skin is without bruises or rashes Psychologically is without concerns for anxiety or depression. Discharge Data Allergies Allergy/AdvReac Type Severity Reaction Status Date / Time ciprofloxacin Allergy Unknown HIVES Verified 05/27/21 02:33 Consultations 05/27/21 01:52 ED Decision to Admit Stat 05/27/21 06:03 Consult Hospitalist Stat Hospital Course (1) 2018 novel coronavirus-infected pneumonia (NCIP): COVID-19 pneumonia with hypoxia- Symptoms began 3 weeks ago. 05/18 first positive COVID-19. Received monoclonal antibody 05/22 Pulse ox 86% on room air, improved to 92% on 5 L nasal cannula in the ER Dexamethasone 6 mg will continue po after discharge will continue cefdinir for le cellulitis at discharge Oxygen walk testing confirms pt is on RA at rest and needs 4 L at time of discharge Guaifenesin with codeine 5 mL p.o. every 3 hours as needed (2) Hypoxia: secondary to viral inflammatory process in lungs, dexamethasone (3) Cellulitis of both lower extremities: Antibiotics as noted above if continues to look improved on 05/29 will de- escalate antibiotics to po cefdinir (4) History of prostatectomy: History of prostatectomy/total cystectomy/ileal conduit, functioning well (5) H/O total cystectomy: See above (6) Hypertension: Holding lisinopril (7) GERD (gastroesophageal reflux disease): Continue famotidine (8) Lower extremity edema: furosemide 40 mg p.o. change to once daily Appears euvolemic Total Time Total Time Spent Total Time Spent (In Minutes): It required greater than 30 minutes to prepare this patient for discharge Discharge Plan Discharge Items Patient Disposition: Home - Home Health Services Reason For Visit: COVID-19 PNEUMONIA W/ HYPOXIA, B/L LE CELLULITIS Discharge Diagnosis: pneumonia with low oxygen level covid infection Activity: Per Instructions section Activity Comment: slowly increase activity Non-emergency contact: Primary Care Provider Call non-emergency contact if: your symptoms worsen and you have a fever Follow-up/Referrals: Noam Briones, DO [Primary Care Provider] - Diet: Regular Addtl Attending Provider Instructions: you have been diagnosed with Covid pneumonia and will be given some medication to try to continue to have you on a good course at home you will need to wear your oxygen at 4 liters when exerting yourself walking or in the bathroom, you may wear it at rest but it is not required at rest, follow up with your primary care for rigoing to see when you may return the oxygen Pending Studies at Discharge: No Stand-Alone Forms: My [facility], Smoking Cessation Medications and DC Order Prescriptions: New benzonatate [Tessalon Perles] 100 mg Capsule 100 mg PO TID PRN (Reason: cough) Qty: 12 RF: 0 codeine-guaifenesin [Guaiatussin AC] 10-100 mg/5 mL Liquid 5 ml PO Q4H PRN (Reason: cough) Qty: 100 RF: 0 cholecalciferol (vitamin D3) 25 mcg (1,000 unit) Capsule 1,000 unit PO QAM Qty: 30 RF: 0 dexamethasone [Decadron] 6 mg tablet 6 mg PO DAILY Qty: 8 RF: 0 cefdinir 300 mg capsule 300 mg PO BID 7 Days Qty: 14 RF: 0 (DME) Oxygen Home Liters Per Minute See Rx Instructions .ROUTE Qty: 1 RF: 0 Continued multivitamin Tablet 1 tab PO DAILY RF: 0 ascorbic acid (vitamin C) [Vitamin C] 1,000 mg Tablet 1 g PO DAILY RF: 0 famotidine 20 mg tablet 20 mg PO DAILY RF: 0 losartan 25 mg tablet 25 mg PO DAILY RF: 0 budesonide [Pulmicort] 0.25 mg/2 mL suspension for nebulization 0.25 mg inhalation Q6 PRN (Reason: Shortness Of Breath Or Wheezing) RF: 0 hydroxyzine HCl 25 mg tablet 25 mg PO DAILY PRN (Reason: Itching) RF: 0 tobramycin-dexamethasone 0.3-0.1 % drops,suspension 1 drp OPB UD RF: 0 Vitamin D3 Liquid 2 drp PO DAILY RF: 0 Changed furosemide 40 mg tablet 40 mg PO DAILY Qty: 0 RF: 0 Discontinued diclofenac sodium 75 mg tablet,delayed release (DR/EC) 75 mg PO DAILY RF: 0 Discharge Orders: Discharge Order (Routine); Ordered 05/29/21 Ordered By: Franki Adan Admission Data Admit Date/Time: 05/27/21 02:35 Attending Provider: Franki Adan Admit Provider: Alphonso Suarez Primary Care Provider: oNam Briones Other Providers: Alphonso Suarez Other Interventions: Discharge Summary Assessment (RN) Last Done: 05/29/21 15:56 Coding Level of Care Code D/C DAY MANAGEMENT >30 MINS Diagnoses 2019 novel coronavirus-infected pneumonia (NCIP) U07.1; J12.82 Hypoxia R09.02 Cellulitis of both lower extremities L03.115; L03.116 History of prostatectomy Z90.79 H/O total cystectomy Z98.890 Hypertension I10 GERD (gastroesophageal reflux disease) K21.9 Lower extremity edema R60.0
== END 2021-05-29 17:45 | disposition home or self-care (01) | DRG 177 ==
LOC: ED 00:19 → 2E 02:35 → SUATTDRO 02:35 → 2E 03:24

== ENCOUNTER 2021-06-28 22:32 | Inpatient (IN) ==
[2021-06-29 02:32] LABS: Alanine Aminotransferase 29 U/L (12-78); Albumin Globulin Ratio 0.6 (0.9-2); Albumin Level 2.8 gm/dl (3.4-5.0); Alkaline Phosphatase 78 U/L (45-117); Anion Gap 0 (3-11); BUN Creatinine Ratio 21.3 (10-20); Bilirubin,Total 0.4 mg/dl (0.2-1); Blood Urea Nitrogen 24 mg/dl (7-18); Carbon Dioxide 39 mmol/L (21-32); Chloride 100 mmol/L (98-107); Est GFR (African American) 70.8 ml/min; Est GFR (Non-African American) 61.1 ml/min; Globulin 4.4 gm/dl (2.5-4.0); Glucose 107 mg/dl (70-99); Sodium 139 mmol/L (136-145); Total Protein 7.2 gm/dl (6.4-8.2); Troponin I < 0.015 ng/ml (0-0.045)
[2021-06-29 02:47] LABS: Basophils # (auto) 0.04 K/uL (0-0.2); Basophils % (auto) 0.6 %; Eosinophils # (auto) 0.18 K/uL (0-0.5); Eosinophils % (auto) 2.9 %; Hematocrit (blood only) 42.6 % (42-52); Immature Granulocytes # (auto) 0.12 K/uL (0.00-0.02); Immature Granulocytes % (auto) 1.9 %; Lymphocytes # (auto) 1.02 K/uL (1.2-3.4); Lymphocytes % (auto) 16.3 %; Mean Corpuscular Hgb Conc 30.5 g/dL (32-36); Mean Corpuscular Volume 98.4 fL (80-100); Mean Platelet Volume 9.3 fL (7.4-10.4); Monocytes # (auto) 0.76 K/uL (0.11-0.59); Monocytes % (auto) 12.1 %; Neutrophils # (auto) 4.14 K/uL (1.4-6.5); Neutrophils % (auto) 66.2 %; Platelet Count 214 K/uL (130-400); RDW Coefficient of Variation 15.8 % (11.5-14.5); RDW Standard Deviation 57.2 fL (36.4-46.3); Red Blood Count 4.33 M/uL (4.7-6.1); White Blood Count 6.26 K/uL (4.8-10.8)
[2021-06-29 03:49] LABS: Partial Thromboplastin Ratio 1.1; Partial Thromboplastin Time 29.4 Seconds (21.0-31.0); Prothrombin Time 10.1 Seconds (9.0-12.0)
[2021-06-29] MEDS ORDERED: ALBUT/IPRATROP 3MG/0.5MG NEB 3 ML VIAL NEB STA (04:10)
[2021-06-29] MEDS ORDERED: FUROSEMIDE INJ 20 MG/2 ML VIAL IV ONE (04:10)
--- NOTE | 2021-06-29 04:35 | Emergency Department Note ---
Impression & Plan Pneumonia, Generalized weakness, Bilateral edema of lower extremity Admit to the [facility] service ED Provider Note NAME: RUSSELL ENCARNACION AGE: 81 SEX: M ARRIVES VIA: Walk-In INFORMANT: Patient and his ED PROVIDER(S): Sylvia Marks DO CHIEF COMPLAINT: Shortness of breath and weakness PLAN: Disposition: Admit to the [facility] Condition: Guarded MEDICAL DECISION MAKING: This is an 81-year-old male patient who presents to the emergency department with shortness of breath and weakness. Patient has moderate bilateral lower extremity edema. He explains that he is Lasix dose has been decreased sometime in the recent past. He received 20 mg of IV Lasix. Patient was noted to be wheezing on physical exam and was given a DuoNeb treatment. Triage Nursing notes reviewed and agree with them. Additional history obtained from the patient's is at the bedside Prior medical records reviewed Vital Signs: reviewed and unremarkable Differential diagnosis: Congestive heart failure, PE, anxiety, pneumonia ER treatment provided: IV Lasix DuoNeb treatment IV Ativan Diagnostics interpreted by me: ECG: Normal sinus rhythm at a rate of 100 with PVCs. There is a right bundle branch block. There is no ST segment elevation. This is unchanged from an EKG on May 27 Cardiac Monitoring: Normal sinus rhythm at 90 Laboratory studies: See below Imaging studies: As per my interpretation Bilateral airspace opacities which have progressively worsened CT scan of the chest: See radiology report HPI: 81/M arrives for evaluation of lysed weakness and shortness of breath. The patient was diagnosed with COVID-19 in April 2021. He had significant shortness of breath and weakness at that time. He states that the difficulty breathing persisted and he was discharged home on 6 L of oxygen. Patient states that he was diagnosed with pneumonia again at the end of May 2021 and was treated with an oral antibiotic. Over the past 2 days, the patient's weakness is significantly increased and he has become more short of breath. ROS: See above HPI for pertinent positives & negatives. A total of 10 systems reviewed and were otherwise negative. PAST MEDICAL HISTORY:See Below PAST SURGICAL HISTORY:See Below FAMILY HISTORY:See Below SOCIAL HISTORY:See Below HOME MEDICATIONS:See list ALLERGIES:See list VITALS:See Below PHYSICAL EXAMINATION: HEENT: Head - normocephalic and atraumatic. Pupils are equal, round, and rohan ctive to light. Extraocular eye muscles are intact, and sclera are anicteric. Nose - moist nasal mucosa without discharge. Mouth - moist buccal mucosa. Oropharynx is nonerythematous and there is no tonsillar exudate or edema noted. Neck: Supple; no JVD Heart: Regular rate and rhythm. There is a normal S1 and S2 with no murmurs, clicks, or gallops appreciated. Lungs: Rhonchi in all lung shultz with expiratory wheezes at both bases. Abdomen: Soft, completely nontender, nondistended, with good bowel sounds. There are no palpable pulsatile masses or hepatosplenomegaly. There is no guarding, rigidity, or rebound noted. Extremities: Pitting edema in both lower extremities to the mid thigh there are easily palpable peripheral pulses. Skin: warm and dry with good turgor and no rashes. ED COURSE:0350: The patient was evaluated in room C1. A complete history and physical was performed. Previous electronic medical records were reviewed. Portable chest x-ray was performed. An order was placed for continuous cardiac monitoring. The patient was in a normal sinus rhythm at a rate of 90. A twelve-lead EKG was obtained as described above. The patient was given a DuoNeb treatment for the wheezing. Patient was given 20 mg of IV Lasix. Patient is hesitant to go for CT scan of the chest because he has to wear a face covering but did finally agree to go after receiving IV Ativan. I reviewed the results of the laboratory studies and CT with the patient his . I discussed the case with the nurse practitioner for the [facility] list group Sylvia Marks DO Past Med/Surg History Medical History (Updated 06/29/21 @ 09:02 by Sylvia Marks DO) GERD (gastroesophageal reflux disease) Hypertension Lower extremity edema Surgical History (Updated 06/29/21 @ 00:08 by Isela Ace) History of cataract surgery History of cholecystectomy Family History Grandmother Diabetes Family/Other Diabetes Cancer Brother Cancer Sister Cancer Social History Smoking Status: Never smoker Tobacco Type: Cigarettes Second Hand Exposure: No; Hx Alcohol Use: No Hx Substance Use: No Preferred Language: Italian Communication Ability: Effective Burlap Bag Sewer Required: No Beliefs That Will Affect Care: None marital status: Current Living Situation: Spouse and Family Current Living Situation Comment: at home with family current occupational status: retired Feels Safe at Home: Yes Assistive Devices: None Allergies Allergies Allergy/AdvReac Type Severity Reaction Status Date / Time fish oil Allergy Intermediate Hives Unverified 06/29/21 07:28 amoxicillin Allergy Unknown Unknown Unverified 06/29/21 07:28 ciprofloxacin Allergy Unknown HIVES Verified 05/27/21 02:33 Home Meds Home Medications Medication Instructions Recorded Confirmed ascorbic acid (vitamin C) 1,000 mg 1 g PO DAILY@1200 05/27/21 06/29/21 tablet (Vitamin C) budesonide 0.25 mg/2 mL suspension 0.25 mg INHALATION Q6 PRN 05/27/21 06/29/21 for nebulization (Pulmicort) famotidine 20 mg tablet 20 mg PO BID 05/27/21 06/29/21 hydroxyzine HCl 25 mg tablet 25 mg PO TID PRN 05/27/21 06/29/21 losartan 25 mg tablet 25 mg PO DAILY@1200 05/27/21 06/29/21 multivitamin 1 tab PO DAILY@1200 05/27/21 06/29/21 Calcium 1000mg Mag 400mg Zinc 25mg 1 tab PO DAILY@1200 06/29/21 06/29/21 betamethasone, augmented 0.05 % 1 applic TOPICAL TID PRN 06/29/21 06/29/21 topical cream cholecalciferol (vitamin D3) 25 1,000 unit PO DAILY@1200 06/29/21 06/29/21 mcg (1,000 unit) capsule clobetasol-emollient 0.05 % 1 applic TOPICAL 3XWK 06/29/21 06/29/21 topical cream furosemide 40 mg tablet 40 mg PO BID 06/29/21 06/29/21 hydrocortisone 2.5 % lotion 1 applic TOPICAL TID PRN 06/29/21 06/29/21 ibuprofen 200 mg tablet 400 mg PO TID PRN 06/29/21 06/29/21 ketoconazole 2 % shampoo 1 applic TOPICAL 3XWK 06/29/21 06/29/21 Previous Rx's Medication Instructions Recorded Oxygen Home #1 ea 05/29/21 Results & Data (ED) Vital Signs Vital Signs - 24 hr 06/28/21 22:41 06/28/21 22:47 06/29/21 03:32 Temperature 36.2 C L Temperature Source Temporal Artery Scan Pulse Rate 100 H Pulse Rate [Apical] 90 Pulse Rhythm Pulse Rhythm [Apical] Regular Pulse Strength [Apical] Normal Respiratory Rate 22 22 Respiratory Effort / Characteristics Spontaneous Labored SOB on Exertion Respiratory Depth Deep Respiratory Pattern Regular Regular Blood Pressure 138/74 Blood Pressure [Left Arm] 154/70 H Blood Pressure Mean 95 Blood Pressure Mean [Left Arm] 98 Blood Pressure Position Sitting Blood Pressure Position [Left Arm] Pulse Oximetry 100 98 Oxygen Delivery Method Nasal Cannula Nasal Cannula Oxygen Flow Rate 6 4 Sepsis Recent Fever Within 48 Hours No Sepsis New/Unexplained Change in Mental Status N/A Sepsis Action Taken by Nursing No Action Required 06/29/21 04:00 06/29/21 06:00 06/29/21 07:29 Temperature Temperature Source Pulse Rate 88 Pulse Rate [Apical] 88 96 H Pulse Rhythm Regular Pulse Rhythm [Apical] Regular Regular Pulse Strength [Apical] Normal Normal Respiratory Rate 20 20 18 Respiratory Effort / Characteristics SOB on Exertion SOB on Exertion Non-Labored Respiratory Depth Normal Normal Respiratory Pattern Blood Pressure Blood Pressure [Left Arm] 154/70 H 187/95 H Blood Pressure Mean Blood Pressure Mean [Left Arm] 98 125 Blood Pressure Position Blood Pressure Position [Left Arm] Lying Pulse Oximetry 99 96 96 Oxygen Delivery Method Nasal Cannula Nasal Cannula Oxymask Oxygen Flow Rate 4 4 5 Sepsis Recent Fever Within 48 Hours Sepsis New/Unexplained Change in Mental Status Sepsis Action Taken by Nursing Laboratory Data Result diagrams: 06/28/21 23:05 06/28/21 23:05 Lab Results 06/28/21 06/28/21 06/29/21 Range/Units 23:05 23:05 03:18 WBC 6.26 (4.8-10.8) K/uL RBC 4.33 L (4.7-6.1) M/uL Hgb 13.0 L (14.0-18.0) g/dL Hct 42.6 (42-52) % MCV 98.4 (80-100) fL MCH 30.0 (25-34) pg MCHC 30.5 L (32-36) g/dL RDW Std Deviation 57.2 H (36.4-46.3) fL RDW Coeff of Felicia 15.8 H (11.5-14.5) % Plt Count 214 (130-400) K/uL MPV 9.3 (7.4-10.4) fL Immature Gran % (Auto) 1.9 % Neut % (Auto) 66.2 % Lymph % (Auto) 16.3 % Cass % (Auto) 12.1 % Eos % (Auto) 2.9 % Baso % (Auto) 0.6 % Neut # (Auto) 4.14 (1.4-6.5) K/uL Lymph # (Auto) 1.02 L (1.2-3.4) K/uL Cass # (Auto) 0.76 H (0.11-0.59) K/uL Eos # (Auto) 0.18 (0-0.5) K/uL Baso # (Auto) 0.04 (0-0.2) K/uL Immature Gran # (Auto) 0.12 H (0.00-0.02) K/uL PT 10.1 (9.0-12.0) Seconds INR 1.0 (0.9-1.1) APTT 29.4 (21.0-31.0) Seconds PTT Ratio 1.1 Sodium 139 (136-145) mmol/L Potassium (3.5-5.1) mmol/L Chloride 100 (98-107) mmol/L Carbon Dioxide 39 H (21-32) mmol/L Anion Gap 0 L (3-11) BUN 24 H (7-18) mg/dl Creatinine 1.11 (0.6-1.4) mg/dl Est Cr Clr Drug Dosing Not Reportable Est GFR ( Amer) 70.8 ml/min Est GFR (Non-Af Amer) 61.1 ml/min BUN/Creatinine Ratio 21.3 H (10-20) Glucose 107 H (70-99) mg/dl Calcium 9.0 (8.5-10.1) mg/dl Magnesium (1.8-2.4) mg/dl Total Bilirubin 0.4 (0.2-1) mg/dl AST (15-37) U/L ALT 29 (12-78) U/L Alkaline Phosphatase 78 (45-117) U/L Troponin I < 0.015 (0-0.045) ng/ml Total Protein 7.2 (6.4-8.2) gm/dl Albumin 2.8 L (3.4-5.0) gm/dl Globulin 4.4 H (2.5-4.0) gm/dl Albumin/Globulin Ratio 0.6 L (0.9-2) Administered Medications Discontinued Medications Albuterol (Albut/Ipratrop 3mg/0.5mg Neb 3 Ml Vial) 3 ml NEB NOW STA Stop: 06/29/21 04:11 Last Admin: 06/29/21 04:35 Dose: 3 ml Documented by: [id number] Furosemide (Furosemide Inj 20 Mg/2 Ml Vial) 20 mg IV ONE ONE Stop: 06/29/21 04:11 Last Admin: 06/29/21 05:16 Dose: 20 mg Documented by: [id number] Lorazepam (Ativan) 0.5 mg in 1 mls @ 1 mls/min IV NOW STA Stop: 06/29/21 05:49 Last Admin: 06/29/21 05:56 Dose: 1 mls/min Documented by: [id number] Imaging Data Radiologist's Impression: Chest X-Ray 06/29/21 01:27 XR chest 1V portable HISTORY: Shortness of breath. COMPARISON: Chest 05/27/2021. FINDINGS: There is mild elevation the right hemidiaphragm, unchanged. Patchy bilateral airspace opacities have slightly progressed within the right lung. No pneumothorax. The heart remains mildly enlarged. There is diffuse interstitial thickening, unchanged. IMPRESSION: Patchy bilateral airspace opacities which have slightly progressed within the right upper lobe. This likely represents a viral pneumonia. ACT 112: Negative or not required by law. Electronically signed by: Surya Bonds M.D. 06/29/2021 7:36 AM Chest CTA 06/29/21 04:10 CT angio chest PE protocol CLINICAL HISTORY: Shortness of breath and difficulty breathing. History of Covid pneumonia. Evaluate for pulmonary embolus COMPARISON STUDY: Portable chest from 06/29/2021 CT DOSE: 1198.26 mGy.cm TECHNIQUE: CT Angio of the chest was performed.followed by image post processing with coronal, and sagittal MIP reformats. Contrast Volume: Optiray 320, 119 ml FINDINGS: Vasculature: There is homogeneous perfusion of the pulmonary vasculature bilaterally. No intraluminal filling defects or evidence for pulmonary embolus is seen. Airway: The airway is clear. No endobronchial lesion is identified. Lungs: Extensive interstitial and alveolar opacities are present bilaterally which have increased radiographically from previous studies. Findings are most characteristic of a viral type pneumonitis and probable Covid pneumonia. No confluent alveolar opacities or air bronchograms are seen. There is right lower lobe atelectasis/collapse. Pleura: There is no evidence for pleural effusion. There is no evidence for pneumothorax. Mediastinum: There is no evidence for pathologic adenopathy. The heart is enlarged. Coronary artery calcification is present. The thoracic aorta is within normal limits. There is no evidence for pericardial effusion. Upper abdomen:The adrenal glands are normal bilaterally. Osseous structures: There is no acute osseous pathology. Impression: 1. No CTA evidence for pulmonary embolus. 2. Extensive interstitial and alveolar opacities most characteristic of a viral type pneumonitis and probable Covid 19 pneumonia. 3. Right basilar atelectasis. 4. Cardiomegaly and coronary artery calcification. ACT 112: Negative or not required by law. Electronically signed by: Boogie Cade M.D. 06/29/2021 7:17 AM Discharge Plan Visit Data Chief Complaint: Shortness of Breath/Dyspnea Stated Complaint: DIFF TIME BREATHING, CONGESTION, COUGHING, SOB ED Provider: Sylvia Marks Discharge Problem: Pneumonia, Generalized weakness, Bilateral edema of lower extremity Forms Stand Alone Forms: [facility] Prescriptions Prescriptions: No Action multivitamin Tablet 1 tab PO DAILY@1200 RF: 0 ascorbic acid (vitamin C) [Vitamin C] 1,000 mg Tablet 1 g PO DAILY@1200 RF: 0 famotidine 20 mg tablet 20 mg PO BID RF: 0 losartan 25 mg tablet 25 mg PO DAILY@1200 RF: 0 budesonide [Pulmicort] 0.25 mg/2 mL suspension for nebulization 0.25 mg inhalation Q6 PRN (Reason: Shortness Of Breath Or Wheezing) RF: 0 hydroxyzine HCl 25 mg tablet 25 mg PO TID PRN (Reason: Itching) RF: 0 (DME) Oxygen Home Liters Per Minute See Rx Instructions .ROUTE Qty: 1 RF: 0 ketoconazole 2 % shampoo 1 applic TOPICAL 3XWK RF: 0 betamethasone, augmented 0.05 % cream 1 applic TOPICAL TID PRN (Reason: Itching) RF: 0 hydrocortisone 2.5 % Lotion 1 applic TOPICAL TID PRN (Reason: Itching) RF: 0 ibuprofen 200 mg Tablet 400 mg PO TID PRN (Reason: Pain) RF: 0 clobetasol-emollient 0.05 % cream 1 applic TOPICAL 3XWK RF: 0 Calcium 1000mg Mag 400mg Zinc 25mg 1 tab PO DAILY@1200 RF: 0 furosemide 40 mg tablet 40 mg PO BID RF: 0 cholecalciferol (vitamin D3) 25 mcg (1,000 unit) capsule 1,000 unit PO DAILY@1200 RF: 0 Referrals Referrals: Noam Briones DO [Primary Care Provider] - Discharge Problem: Pneumonia Qualifiers: Pneumonia type: due to unspecified organism Laterality: bilateral Lung location: unspecified part of lung Qualified Code(s): J18.9 - Pneumonia, unspecified organism
[2021-06-29] MEDS ORDERED: LORazepam 0.5 MG/1 ML VIAL IV STA (05:48)
--- NOTE | 2021-06-29 07:18 | CT Scan Report ---
CT angio chest PE protocol CLINICAL HISTORY: Shortness of breath and difficulty breathing. History of Covid pneumonia. Evaluate for pulmonary embolus COMPARISON STUDY: Portable chest from 06/29/2021 CT DOSE: 1198.26 mGy.cm TECHNIQUE: CT Angio of the chest was performed.followed by image post processing with coronal, and s agittal MIP reformats. Contrast Volume: Optiray 320, 119 ml FINDINGS: Vasculature: There is homogeneous perfusion of the pulmonary vasculature bilaterally. No intraluminal filling defects or evidence for pulmonary embolus is seen. Airway: The airway is clear. No endobronchial lesion is identified. Lungs: Extensive interstitial and alveolar opacities are present bilaterally which have increased rad iographically from previous studies. Findings are most characteristic of a viral type pneumonitis and probable Covid pneumonia. No confluent alveolar opacities or air bronchograms are seen. There is rig ht lower lobe atelectasis/collapse. Pleura: There is no evidence for pleural effusion. There is no evidence for pneumothorax. Mediastinum: There is no evidence for pathologic adenopathy. The heart is enlarged. Coronary artery c alcification is present. The thoracic aorta is within normal limits. There is no evidence for pericar dial effusion. Upper abdomen:The adrenal glands are normal bilaterally. Osseous structures: There is no acute osseous pathology. Impression: 1. No CTA evidence for pulmonary embolus. 2. Extensive interstitial and alveolar opacities most characteristic of a viral type pneumonitis and probable Covid 19 pneumonia. 3. Right basilar atelectasis. 4. Cardiomegaly and coronary artery calcification. ACT 112: Negative or not required by law. Electronically signed by: Boogie Cade M.D. 06/29/2021 7:17 AM
--- NOTE | 2021-06-29 07:37 | XRay Report ---
XR chest 1V portable HISTORY: Shortness of breath. COMPARISON: Chest 05/27/2021. FINDINGS: There is mild elevation the right hemidiaphragm, unchanged. Patchy bilateral airspace opaci ties have slightly progressed within the right lung. No pneumothorax. The heart remains mildly enlarg ed. There is diffuse interstitial thickening, unchanged. IMPRESSION: Patchy bilateral airspace opacities which have slightly progressed within the right upper lobe. This likely represents a viral pneumonia. ACT 112: Negative or not required by law. Electronically signed by: Surya Bonds M.D. 06/29/2021 7:36 AM
--- NOTE | 2021-06-29 09:29 | History & Physical Report ---
Date of Service June 29, 2021 Assessment & Plan (1) Dyspnea: Plan: Patient continues with dyspnea and hypoxia with respiratory insufficency/failure - DDX: Post COVID symptoms (although progressing at this time), CHF exacerbation, Atypical or bacterial pneumonia, COPD exacerbation - Patient will continue to be diuresed as he does have evidence of volume overload- 40mg IV lasix q8 hours today - For his ? COPD will add on scheduled nebulizers with albuterol and continue his Pulmicort Respules nebs - Will hold on steroids at this time as no definitive benefit for ? treatment - CRP is down to 6 from discharge PCT, - Phos is normal (2) Pneumonia: Plan: Viral hangover pneumonia vs. ? underlying bacterial pneumonia with reports of sputum- he has not reported any here- has completed outpatient course of Azithromycin - CRP 6, PCT <0.05, Aspergillus, and Fungitell sent - Send BIOfire, legionella antigen - No elevation in WBC or fevers reported - Normal NLR of 4:1 - Risk factors- Steroid use, COPD, COVID - Likely viral continuation at this point with negative biomarker/inflammatory marker/infective markers. Will follow closely and await aspergillus and Fungitell - If he clinically decompensates will add broad coverage - If no improvement with the above or clinical worsening may need bronchoscopy for further eval. (3) Hypoxia: Plan: As above on home oxygen following his COVID 19 infection - Has not been able to wean down - DDX as above - Will diurese, add on ASHELY nebs continue ICS with Pulmicort and follow his symptoms - He has put out >600 ml since 0400 dose - Lasix 40mg IV q8 hours, will evaluate this evening if night dose is needed. (4) Heart failure: Plan: Unsure of type or compensation; Not much documentation for this diagnosis, noted a smattering of this throughout his history. He normally does not follow up with PCP or specialists here - Will obtain ECHO - Optimize medications with ECHO information if needed - This is likely having a decent component to his breathlessness right now. - Follow his HCO3 with diuresing- will re-check BMP and VBG at 1500- (5) PVC (premature ventricular contraction): Plan: No runs, no couplets, unifocal - No chest pain, negative Troponin I - May be related to volume and hypoxia stress - Telemetry for 24 hours to follow - Electrolytes were hemolyzed with lab draws at 2330 in [facility]- will recheck now (6) 2019 novel coronavirus-infected pneumonia (NCIP): Plan: COVID negative and >21 days since symptoms - Although part of his dyspnea may be from long haul effects - symptom treatment as above (7) Bladder cancer: Plan: With diverting urostomy- 2014 - had some skin irritation in the past that was followed by woundcare- resolved - urostomy functioning with good urine output- no sediments (8) COPD (chronic obstructive pulmonary disease): Plan: Unclear of this diagnosis or who is managing as no notes available to review - He is a former smoker 2-1/2 packs for >30 years- quit in 1993 - Albuterol nebulizers scheduled - Pulmicort resupule nebs continued- q8 scheduled History of Present Illness Primary Care Provider: Noam Briones, DO 81 YOM with past medical history of: BPH with bladder cancer s/p prostatectomy and diverting urostomy, lumbar disk disease, HTN, COPD, GERD, CHF, Morbid obesity, COVID 19 (05/27/21). Patient comes in to the hosptial today for increased dyspnea at rest and exertion, and increase in edema to lower extremities. Patient states that after he was discharged on 05/29 with home oxygen at 4L he was feeling well and was progressing up until 2-3 weeks ago. At that time he started to get increased dyspnea when going about 30 feet to the bathroom and needed to increase his oxygen to 6L at home. He reports that he also had an increase in cought that was productive. The sputum went from thick clear to thick and green. He was seen by his PCP he reports and was placed on Azithromycin which his states finished on - (no documentation to review on this). He also was placed on Lasix 40mg which he has not noticed a difference. The patient's states he puts allot of salt on his food all the time. He denies any orthopnea but when he does lay flat he coughs allot, but is able to sleep like that. In the [facility] the patient had routine labs drawn, CXR and CTA of the chest performed. He was given 20mg Lasix IV at 0430 this morning with 600ml out of his urostomy bag. He is on oxymask at 5L currently with SPO2 94-96%, he had an SPO2 of 88-90% on 4LNC. He is conversationally dyspneic and has pitting edema up to legs bilaterally. He carries a diagnosis of COPD but no PFTs available and is on Pulmicort at home without a ASHELY or long acting anticholinergic/muscarinic. His CTA of this chest was negative for PE and remains with ground glass opacities bilateral with atelectasis and small plueral effusion. Patient will be admitted to continue work up for dyspnea and rule in/out infectious process, continue to diurese but increase his IV Lasix dose, PT/OT consult. I have added on aspergillus, Fungitell, and PCT with CRP for further evaluation of other causes of infective pneumonia. For his hospital course in April for his COVID admission he did receive monoclonal antibodies prior to hospitalization on 05/22, once admitted in 05/27/21 he was started on Decadron 6mg IV and transitioned to PO at discharge, nebulizers, and Rocephin and Azithromycin. This was discontinued at discharge. He was also noted to have a right lower extremity cellulitis that continued to be treated post discharge with Cefdinir. Patient COVID test was repeated in EMD and is: COVID test on admission is NEGATIVE Allergies Allergy/AdvReac Type Severity Reaction Status Date / Time fish oil Allergy Intermediate Hives Unverified 06/29/21 07:28 amoxicillin Allergy Unknown Unknown Unverified 06/29/21 07:28 ciprofloxacin Allergy Unknown HIVES Verified 05/27/21 02:33 Home Medications Medication Instructions Recorded Confirmed Type ascorbic acid (vitamin C) 1,000 mg 1 g PO DAILY@1200 05/27/21 06/29/21 History tablet (Vitamin C) budesonide 0.25 mg/2 mL suspension 0.25 mg INHALATION Q6 PRN 05/27/21 06/29/21 History for nebulization (Pulmicort) famotidine 20 mg tablet 20 mg PO BID 05/27/21 06/29/21 History hydroxyzine HCl 25 mg tablet 25 mg PO TID PRN 05/27/21 06/29/21 History losartan 25 mg tablet 25 mg PO DAILY@1200 05/27/21 06/29/21 History multivitamin 1 tab PO DAILY@1200 05/27/21 06/29/21 History Oxygen Home #1 ea 05/29/21 Rx Calcium 1000mg Mag 400mg Zinc 25mg 1 tab PO DAILY@1200 06/29/21 06/29/21 History betamethasone, augmented 0.05 % 1 applic TOPICAL TID PRN 06/29/21 06/29/21 History topical cream cholecalciferol (vitamin D3) 25 1,000 unit PO DAILY@1200 06/29/21 06/29/21 History mcg (1,000 unit) capsule clobetasol-emollient 0.05 % 1 applic TOPICAL 3XWK 06/29/21 06/29/21 History topical cream furosemide 40 mg tablet 40 mg PO BID 06/29/21 06/29/21 History hydrocortisone 2.5 % lotion 1 applic TOPICAL TID PRN 06/29/21 06/29/21 History ibuprofen 200 mg tablet 400 mg PO TID PRN 06/29/21 06/29/21 History ketoconazole 2 % shampoo 1 applic TOPICAL 3XWK 06/29/21 06/29/21 History Past Med/Surg History Medical History GERD (gastroesophageal reflux disease) Hypertension Lower extremity edema Surgical History History of cataract surgery History of cholecystectomy Family History Grandmother Diabetes Family/Other Diabetes Cancer Brother Cancer Sister Cancer Social History Smoking Status: Never smoker Tobacco Type: Cigarettes Second Hand Exposure: No; Hx Alcohol Use: No Hx Substance Use: No Preferred Language: Gabonese Communication Ability: Effective Anatomical Embalmer Required: No Beliefs That Will Affect Care: None marital status: Current Living Situation: Spouse Current Living Situation Comment: at home with family current occupational status: retired Feels Safe at Home: Yes Safety Concerns: Feels Safe At This Time Assistive Devices: Oxygen - Continuous Review of Systems Review of Systems: REVIEW OF SYSTEMS: Constitutional: No fever, sweats or chills Eyes: No diplopia, no worsening or blurred vision ENT: normal hearing, no trouble swallowing Respiratory: (+) cough, sputum, dyspnea at rest or on exertion, peripheral edema Cardiovascular: No chest pain, tightness or palpitations Abdomen: No pain, nausea, vomiting, diarrhea or constipation Musculoskeletal: (+) chronic back pain, calf pain, Neurologic: No weakness, numbness/tingling, or balance problems Psychiatric: No anxiety or depression Skin: (+) erythema to right lower leg Physical Exam Physical Exam: PHYSICAL EXAM: General: awake, alert, no apparent distress- patient has been here since 2330 last night so he is tired Head: Normocephalic, atraumatic ENT: PERRLA, EOMI, no pharyngeal exudate, mucous membranes moist Neuro: AAO x 3, speech clear and appropriate, strength intact bilaterally 5/5, sensation intact and equal all extremities and dermatomes, no pronator drift Chest: equal rise and fall of the chest, dyspneic, tachypneic, scattered rhonchi throughout bilaterally with poor air movement in the bases, Cardiac: Regular rate and rhythm, telemetry reviewed- Sinus tach with PVC, skin warm dry, cap refill <3 seconds, peripheral pulses +2 no JVD, no murmur, 3+ edema bilaterally lower extrmeities that extend to knees, 1+ to above the knee GI: NABS x 4 quadrants, soft, nontender to palpation, no rebound, guarding or tenderness : Spontaneously voiding in to urostomy bag- urine clear light yellow Extremities: Normal inspection, no peripheral edema or erythema, calfs nontender to palpation Psych: Normal mood and affect Skin: errythma to lower right leg at suero- likely related to edema Results & Data Results & Data ([facility]) Vital Signs (Past 12 Hours) Vital Signs Temp Pulse Pulse Resp BP BP Pulse Ox 06/29/21 07:29 96 H 18 187/95 H 96 06/29/21 06:00 88 20 154/70 H 96 06/29/21 04:00 88 20 99 06/29/21 03:32 90 22 154/70 H 98 06/28/21 22:41 36.2 C L 100 H 22 138/74 100 Laboratory Results Abnormal lab results 06/28/21 06/28/21 Range/Units 23:05 23:05 RBC 4.33 L (4.7-6.1) M/uL Hgb 13.0 L (14.0-18.0) g/dL MCHC 30.5 L (32-36) g/dL RDW Std Deviation 57.2 H (36.4-46.3) fL RDW Coeff of Felicia 15.8 H (11.5-14.5) % Lymph # (Auto) 1.02 L (1.2-3.4) K/uL [place] # (Auto) 0.76 H (0.11-0.59) K/uL Immature Gran # (Auto) 0.12 H (0.00-0.02) K/uL Carbon Dioxide 39 H (21-32) mmol/L Anion Gap 0 L (3-11) BUN 24 H (7-18) mg/dl BUN/Creatinine Ratio 21.3 H (10-20) Glucose 107 H (70-99) mg/dl Albumin 2.8 L (3.4-5.0) gm/dl Globulin 4.4 H (2.5-4.0) gm/dl Albumin/Globulin Ratio 0.6 L (0.9-2) Diagnostic Findings Chest X-Ray 06/29/21 01:27 XR chest 1V portable HISTORY: Shortness of breath. COMPARISON: Chest 05/27/2021. FINDINGS: There is mild elevation the right hemidiaphragm, unchanged. Patchy bilateral airspace opacities have slightly progressed within the right lung. No pneumothorax. The heart remains mildly enlarged. There is diffuse interstitial thickening, unchanged. IMPRESSION: Patchy bilateral airspace opacities which have slightly progressed within the right upper lobe. This likely represents a viral pneumonia. ACT 112: Negative or not required by law. Electronically signed by: Surya Bonds M.D. 06/29/2021 7:36 AM Chest CTA 06/29/21 04:10 CT angio chest PE protocol CLINICAL HISTORY: Shortness of breath and difficulty breathing. History of Covid pneumonia. Evaluate for pulmonary embolus COMPARISON STUDY: Portable chest from 06/29/2021 CT DOSE: 1198.26 mGy.cm TECHNIQUE: CT Angio of the chest was performed.followed by image post processing with coronal, and sagittal MIP reformats. Contrast Volume: Optiray 320, 119 ml FINDINGS: Vasculature: There is homogeneous perfusion of the pulmonary vasculature bilaterally. No intraluminal filling defects or evidence for pulmonary embolus is seen. Airway: The airway is clear. No endobronchial lesion is identified. Lungs: Extensive interstitial and alveolar opacities are present bilaterally which have increased radiographically from previous studies. Findings are most characteristic of a viral type pneumonitis and probable Covid pneumonia. No confluent alveolar opacities or air bronchograms are seen. There is right lower lobe atelectasis/collapse. Pleura: There is no evidence for pleural effusion. There is no evidence for pneumothorax. Mediastinum: There is no evidence for pathologic adenopathy. The heart is enlarged. Coronary artery calcification is present. The thoracic aorta is within normal limits. There is no evidence for pericardial effusion. Upper abdomen:The adrenal glands are normal bilaterally. Osseous structures: There is no acute osseous pathology. Impression: 1. No CTA evidence for pulmonary embolus. 2. Extensive interstitial and alveolar opacities most characteristic of a viral type pneumonitis and probable Covid 19 pneumonia. 3. Right basilar atelectasis. 4. Cardiomegaly and coronary artery calcification. ACT 112: Negative or not required by law. Electronically signed by: Boogie Cade M.D. 06/29/2021 7:17 AM Medications Administered Discontinued Medications Albuterol (Albut/Ipratrop 3mg/0.5mg Neb 3 Ml Vial) 3 ml NEB NOW STA Stop: 06/29/21 04:11 Last Admin: 06/29/21 04:35 Dose: 3 ml Documented by: [id number] Furosemide (Furosemide Inj 20 Mg/2 Ml Vial) 20 mg IV ONE ONE Stop: 06/29/21 04:11 Last Admin: 06/29/21 05:16 Dose: 20 mg Documented by: [id number] Lorazepam (Ativan) 0.5 mg in 1 mls @ 1 mls/min IV NOW STA Stop: 06/29/21 05:49 Last Admin: 06/29/21 05:56 Dose: 1 mls/min Documented by: [id number] Home Medications ascorbic acid (vitamin C) 1,000 mg tablet (Vitamin C) 1 g PO DAILY@1200 05/27/21 [History Confirmed 06/29/21] budesonide 0.25 mg/2 mL suspension for nebulization (Pulmicort) 0.25 mg INHALATION Q6 PRN 05/27/21 [History Confirmed 06/29/21] famotidine 20 mg tablet 20 mg PO BID 05/27/21 [History Confirmed 06/29/21] hydroxyzine HCl 25 mg tablet 25 mg PO TID PRN 05/27/21 [History Confirmed 06/29/21] losartan 25 mg tablet 25 mg PO DAILY@1200 05/27/21 [History Confirmed 06/29/21] multivitamin 1 tab PO DAILY@1200 05/27/21 [History Confirmed 06/29/21] Oxygen Home #1 ea 05/29/21 [Rx] Calcium 1000mg Mag 400mg Zinc 25mg 1 tab PO DAILY@1200 06/29/21 [History Confirmed 06/29/21] betamethasone, augmented 0.05 % topical cream 1 applic TOPICAL TID PRN 06/29/21 [History Confirmed 06/29/21] cholecalciferol (vitamin D3) 25 mcg (1,000 unit) capsule 1,000 unit PO DAILY@1200 06/29/21 [History Confirmed 06/29/21] clobetasol-emollient 0.05 % topical cream 1 applic TOPICAL 3XWK 06/29/21 [History Confirmed 06/29/21] furosemide 40 mg tablet 40 mg PO BID 06/29/21 [History Confirmed 06/29/21] hydrocortisone 2.5 % lotion 1 applic TOPICAL TID PRN 06/29/21 [History Confirmed 06/29/21] ibuprofen 200 mg tablet 400 mg PO TID PRN 06/29/21 [History Confirmed 06/29/21] ketoconazole 2 % shampoo 1 applic TOPICAL 3XWK 06/29/21 [History Confirmed 06/29/21] Active Medications Furosemide (Furosemide 40 Mg/4 Ml Vial) 40 mg IV ONE ONE Stop: 06/29/21 10:31 ECG Additional Comments: Sinus rhythm with occasional Premature ventricular complexes Right bundle branch block Left anterior fascicular block Bifascicular block Moderate voltage criteria for LVH, may be normal variant Possible Lateral infarct (cited on or before 28-JUN-2021) Abnormal ECG When compared with ECG of 27-MAY-2021 00:47, Premature ventricular complexes are now Present Code Status & VTE Plan Code Status CODE: FULL VTE: SCDs, Lovenox 40mg SQ BID Supervising Physician Co-Signing 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 He was sent home on 4LNC with exertion but is rquiring 6 L NC here at rest. No fevers/chills, no N/V/D. History and ROS reviewed as anbove Vitals reviewed NAD, obese, drowsy HEENT anicteric sclerae, moist mucus membranes CV-RRR no mgr PULM: +crackles, rhonchi diffusely, diminished BS at bases bilat Abd obese, +BS soft NT Ext 2+ pitting edema with chronic venous stasis legs bilat w/ pinkish color. Labs and Rads reviewed 81 yo male here with acute on chronic respiratory failure with hypoxia and hypercapnia, diffuse infiltrates throughout bilat lungs that may be residual f rom COVID PNA vs new bacterial PNA vs fungal PNA or atypical PNA, and likely acute on chronic diastolic CHF -continue to diurese with IV lasix -recommend BiPAP hs and with naps if he can tolerate given his hypercapnia which is subacute on chronic (serum bicarb usually 30 and currently 43 up from 1 month ago, VBG pH 7.3/92). -check ABG in AM after not wearing BiPAP and see where PaCO2 is--> may qualify for Trilogy at home if proves to have OHS -check Legionella, Fungitell, BioFire Check sputum culture -hold off on antibiotics for now, no further steroids Consider PULMONOLOGY consult in AM PG Care Time/CCT Total # of Minutes Spent Total Time Spent with Patient: Total time spent is greater than 50% in coordination of care (as documented) at patient's floor/unit and/or counseling patient: Coding Level of Care Code 82088 Initial Inpt Care Lvl 3 Diagnoses Dyspnea R06.00 Pneumonia J18.9 Laterality: bilateral Lung location: unspecified part of lung Pneumonia type: due to unspecified organism Hypoxia R09.02 2019 novel coronavirus-infected pneumonia (NCIP) U07.1; J12.82 Bladder cancer C67.9 COPD (chronic obstructive pulmonary disease) J44.9 PVC (premature ventricular contraction) I49.3 Heart failure I50.9 (1) Pneumonia Laterality: bilateral Lung location: unspecified part of lung Pneumonia type: due to unspecified organism Qualified Code(s): J18.9 - Pneumonia, unspecified organism
[2021-06-29] MEDS ORDERED: FUROSEMIDE 40 MG/4 ML VIAL IV ONE ×2 (10:30→21:00)
[2021-06-29 10:34] LABS: BUN Creatinine Ratio 19.4 (10-20); Blood Urea Nitrogen 19 mg/dl (7-18); C Reactive Protein 6.18 mg/dl (0-0.29); Calcium 9.2 mg/dl (8.5-10.1); Carbon Dioxide 43 mmol/L (21-32); Chloride 98 mmol/L (98-107); Est GFR (African American) 80.3 ml/min; Est GFR (Non-African American) 69.3 ml/min; Glucose 118 mg/dl (70-99); Magnesium 2.4 mg/dl (1.8-2.4); Phosphorus 2.7 mg/dl (2.5-4.9); Potassium 3.6 mmol/L (3.5-5.1); Sodium 141 mmol/L (136-145)
--- NOTE | 2021-06-29 10:34 | Electrocardiogram Report ---
Test Reason : Blood Pressure : / mmHG Vent. Rate : 100 BPM Atrial Rate : 100 BPM P-R Int : 200 ms QRS Dur : 122 ms QT Int : 354 ms P-R-T Axes : 045 -59 046 degrees QTc Int : 456 ms Sinus rhythm with occasional Premature ventricular complexes 1st degree AV block Right bundle branch block Left anterior fascicular block Bifascicular block Moderate voltage criteria for LVH, may be normal variant Possible Lateral infarct (cited on or before 28-JUN-2021) Abnormal ECG When compared with ECG of 27-MAY-2021 00:47, Premature ventricular complexes are now Present OR interval has decreased QRS duration has decreased Confirmed by Paulo Ward ([id number]) on 06/29/2021 10:33:36 AM Referred By: REFERRED SELF Confirmed By:Finn Ward
[2021-06-29] MEDS ORDERED: POTASSIUM CHLORIDE CRTAB 20 MEQ TABCR PO STA (10:44)
--- NOTE | 2021-06-29 13:46 | XCELERA ---
[id number]
[2021-06-29 15:41] LABS: Base Excess VBG 13.6 mEq/L; HCO3 VBG 44 mmol/L; PCO2 VBG 92 mmHg (38-50); PO2 VBG 32 mmHg
[2021-06-29 15:42] LABS: Creatinine Clr Calc Pharmacy 65.1 ml/min; Est GFR (African American) 60.7 ml/min; Est GFR (Non-African American) 52.4 ml/min; Potassium 3.9 mmol/L (3.5-5.1)
[2021-06-29 15:59] LABS: Oxygen Saturation VBG < 60.0 %
[2021-06-29 19:28] LABS: Adenovirus PCR Not Detected (NotDetected); Bordetella parapertussis PCR Not Detected (NotDetected); Bordetella pertussis PCR Not Detected (NotDetected); Chlamydia pneumoniae PCR Not Detected (NotDetected); Coronavirus 229E PCR Not Detected (NotDetected); Coronavirus HKU1 PCR Not Detected (NotDetected); Coronavirus NL63 PCR Not Detected (NotDetected); Coronavirus OC43PCR Not Detected (NotDetected); Human Metapneumovirus PCR Not Detected (NotDetected); Influenza A PCR Not Detected (NotDetected); Influenza B PCR Not Detected (NotDetected); Mycoplasma pneumoniae PCR Not Detected (NotDetected); Parainfluenza Virus 1 PCR Not Detected (NotDetected); Parainfluenza Virus 2 PCR Not Detected (NotDetected); Parainfluenza Virus 3 PCR Not Detected (NotDetected); Parainfluenza Virus 4 PCR Not Detected (NotDetected); Respiratory Syncytial VirusPCR Not Detected (NotDetected); Rhinovirus/Enterovirus PCR Not Detected (NotDetected)
[2021-06-29] MEDS ORDERED: hydrOXYzine HCl 25 MG TAB PO PRN (19:45)
[2021-06-29] MEDS ORDERED: POLYETHYLENE (MIRALAX) 17 GM PACK PO PRN (19:45)
[2021-06-29] MEDS ORDERED: ONDANSETRON INJ 2 MG/ML 2 ML VIAL IV PRN (19:45)
[2021-06-29 20:08] LABS: Coronavirus CoV-2 (COVID19)PCR DETECTED (NotDetected)
[2021-06-29] MEDS: BUDESONIDE 0.25 MG/2 ML VIAL (PULMICORT) INH SCH (21:27)
[2021-06-29] MEDS: ALBUTEROL 0.5% NEB SOLN 2.5 MG/0.5 ML VIAL NEB SCH (21:27)
[2021-06-29] MEDS: LOSARTAN POTASSIUM 25 MG TAB PO SCH (21:31)
[2021-06-29] MEDS: FAMOTIDINE 20 MG TAB PO SCH ×2 (21:31)
[2021-06-29] MEDS: ENOXAPARIN INJ 40 MG/0.4 ML SYR SQ SCH (21:31)
[2021-06-30] MEDS: ALBUTEROL 0.5% NEB SOLN 2.5 MG/0.5 ML VIAL NEB SCH ×4 (01:02→18:00)
[2021-06-30] MEDS: BUDESONIDE 0.25 MG/2 ML VIAL (PULMICORT) INH SCH ×2 (07:14→18:00)
[2021-06-30 07:30] LABS: Basophils # (auto) 0.02 K/uL (0-0.2); Basophils % (auto) 0.3 %; Eosinophils % (auto) 1.7 %; Hematocrit (blood only) 37.8 % (42-52); Hemoglobin 11.4 g/dL (14.0-18.0); Immature Granulocytes # (auto) 0.09 K/uL (0.00-0.02); Immature Granulocytes % (auto) 1.6 %; Lymphocytes # (auto) 0.74 K/uL (1.2-3.4); Lymphocytes % (auto) 12.8 %; Mean Corpuscular Hemoglobin 30.2 pg (25-34); Mean Corpuscular Hgb Conc 30.2 g/dL (32-36); Mean Corpuscular Volume 100.3 fL (80-100); Mean Platelet Volume 8.6 fL (7.4-10.4); Monocytes # (auto) 0.57 K/uL (0.11-0.59); Monocytes % (auto) 9.8 %; Neutrophils # (auto) 4.28 K/uL (1.4-6.5); Neutrophils % (auto) 73.8 %; Platelet Count 223 K/uL (130-400); RDW Coefficient of Variation 15.9 % (11.5-14.5); RDW Standard Deviation 57.9 fL (36.4-46.3); Red Blood Count 3.77 M/uL (4.7-6.1)
[2021-06-30 08:22] LABS: BUN Creatinine Ratio 19.7 (10-20); Creatinine Clr Calc Pharmacy 76.7 ml/min; Est GFR (Non-African American) 63.9 ml/min; Magnesium 2.2 mg/dl (1.8-2.4); Potassium 3.9 mmol/L (3.5-5.1)
[2021-06-30] MEDS ORDERED: CEFEPIME 2,000 MG in SYRINGE 0 ML IV SCH (10:00)
--- NOTE | 2021-06-30 10:14 | Hospitalist Progress Note ---
Date of Service June 30, 2021 Assessment & Plan (1) Dyspnea: Plan: Hx BPH with bladder cancer s/p prostatectomy and diverting urostomy, lumbar disk disease, HTN, COPD, GERD, CHF, Morbid obesity, COVID 19 (05/27/21). On precautions still as being roomed with another COVID patient in [facility] [place] to be CHF on admit and received multiple doses IV lasix 40mg IV x 2 -- suspect combination of CHF as WELL HYPERCAP RESP FAILURE Presented with worsening shortness of breath/hypoxia/resp failure with hypercapnia with CO2 90, bicarb 39 on admit Had been d/c on O2 from recent covid hospitalization and cefdinir --> of note, never tested for sleep apnea/no CPAP/BiPAP at baseline and suspect continued O2 use worsening hypercapneic respiratory failure as he had been 100% continuous on Nasal Cannula and worsening CO2 on VBG 90, with bicarb 39 on admission (baseline closer to 27-30 range) Attempts were made to place ?CPAP overnight but suspect patient with CO2 retention and not oxygenation issue Bicarb elevated to 41 this AM ABG not initially drawn as patient demanding to leave, BiPAP was able to be placed this morning and patient tolerated for several hours (had been initially demanding to go AMA but convinced to stay) but angry about not getting up in bed to eat -- on Oxymask but encouraged nursing to titrate to lowest possible and place back on BiPAP JONES ABG drawn after drawn after BiPAP in place and pH 7.4, PCO2 65, PO2 60, HCO3 46, SpO2 90% 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 Added dose of diamox for CO2 retention. Continue to monitor diuresis and obtain daily weights/I&os Pulm consult placed -- appreciate recs Continue to monitor (2) Pneumonia: Plan: Viral hangover pneumonia vs. ? underlying bacterial pneumonia with reports of sputum- he has not reported any here- has completed outpatient course of Azithromycin - CRP 6, PCT <0.05, Aspergillus, and Fungitell sent - Send BIOfire, legionella antigen. follow aspergillus and Fungitell WBC wnl however given above, tx cefepime for now, add mrsa coverage for HAP if nasal + Monitor sputum cx Continue to monitor Pulm on consult--??bronch. worry about prior covid patients this far out and possible Pneumocystis?/need for bronch? 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 Continue to monitor/assess Had been 100% on NC --> BipAP as above (4) Heart failure: Plan: Unsure of type or compensation; Not much documentation for this diagnosis, noted a smattering of this throughout his history. He normally does not follow up with PCP or specialists here ECHO LV systolic function normal Mild LVH, RVSP at 40-50mmHg -- no PE on CT but suspect longstanding elevated R pressures and unfortunately never had sleep study as outpatient Lasix 40mg IV x 1 today, dose of diamox x1 BiPAP Kidney function stable Continue to monitor closely (5) PVC (premature ventricular contraction): Plan: No runs, no couplets, unifocal No CP, trop negative (6) 2019 novel coronavirus-infected pneumonia ([facility]): Plan: COVID negative and >21 days since symptoms - Although part of his dyspnea may be from long haul effects - symptom treatment as above ?worsening covid vs CAP/hypercapnic resp failure (7) Bladder cancer: Plan: With diverting urostomy- 2014 - had some skin irritation in the past that was followed by wound care- resolved - urostomy functioning with good urine output- no sediments (8) COPD (chronic obstructive pulmonary disease): Plan: Unclear of this diagnosis or who is managing as no notes available to review - He is a former smoker 2-1/2 packs for >30 years- quit in 1993 - Albuterol nebulizers scheduled - Pulmicort resupule nebs continued Would rec PFT and sleep study as outpatient as patient very likely with sleep apnea and chronic respiratory failure --> Arrange pulm /fu at d/c (9) Anemia: Plan: prior hgbs in 13-14 range Now macrocytic and endorsed LE neuropathy symptoms Check B12/folate Plan: BiPAP Lasix + diamox Abx, Mrsa nasal if + add coverage Pulm consult Changed to PCU bed when on available Admission and Anticipated Discharge Date Admission Date: June 29, 2021 Supervising Physician Co-Signing Physician Notes chart reviewed and case d/w L Yazan PAC. agree w above Subjective patient eval in Er. wanting to leave AMA this morning Had been on O2, never placed on CPAP at night and was up to 15L oxymask. 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 Does not have CPAP/BiPAP at home but had been on continuous O2 via NC since d/c remotely with his COVID-19 infection. Discussed starting abx empirically and obtaining nasal swab and will add mrsa coverage if needed. States breathing stable but feeling quite fatigued. Chronic LE Neuropathy. Denies chest pain, abdominal pain, nausea or vomiting at this time. Main issues is wanting to get up to side of bed to eat lunch -- discussed will discuss with nursing staff after we give the BiPAP some time to work. Review of Systems Review of Systems: All systems reviewed & are unremarkable except as noted in HPI & below Physical Exam Physical Exam: WN/WD, morbidly obese male, sitting upright in hospital bed, drowsy with BiPAP in place -- angry earlier about wanting to leave more calm currently Uremic [place]/drying/scaling of forehead and b/l LE eyes anicteric, pupils equal and reactive. no tracheal deviation, no accessory muscle use, not tachypneic resp: +crackles in the bases and scattered throughout, +expiratory wheezing, +Rhonchi, diminished in the bases, on BiPAP CV: RRR, no m/r/g, , calves non-tender to palpation, 1+ edema b/l LE skin: dry, flaky, no obvious infection, chronic venous stasis changes b/l LE with pink tinged color Neuro: moves all extremities, slight decreased sensation to light touch b/l LE (reported chronic x 10years), no focal deficits Psych: Alert, oriented to person/place/time, angry about not getting up to side of bed,poor insight about needing to wear BiPAP for CO2 retention Results & Data Results & Data ([facility]) Vital Signs (Past 12 Hours) Vital Signs Temp Pulse Pulse Resp BP BP Pulse Ox 06/30/21 09:40 101 H 35 H 91 06/30/21 09:30 100 H 25 H 152/114 H 91 06/30/21 09:20 111 H 37 H 97 06/30/21 09:00 65 L 06/30/21 08:50 102 H 90 06/30/21 08:40 84 L 06/30/21 08:30 22 84 L 06/30/21 08:00 90 18 97 06/30/21 07:30 92 H 25 H 96 06/30/21 07:15 91 H 22 88 L 06/30/21 07:00 93 H 18 138/75 94 06/30/21 06:30 91 H 14 93 06/30/21 05:34 95 H 22 130/86 95 06/30/21 02:25 105 H 20 127/85 93 06/30/21 01:02 97 H 20 96 06/30/21 00:10 105 H 22 163/92 H 94 06/29/21 23:09 36.4 C 97 H 20 125/91 99 Laboratory Results 06/30/21 06/30/21 06/30/21 Range/Units 15:07 14:50 12:26 WBC (4.8-10.8) K/uL RBC (4.7-6.1) M/uL Hgb (14.0-18.0) g/dL Hct (42-52) % MCV (80-100) fL MCH (25-34) pg MCHC (32-36) g/dL RDW Std Deviation (36.4-46.3) fL RDW Coeff of Felicia (11.5-14.5) % Plt Count (130-400) K/uL MPV (7.4-10.4) fL Immature Gran % (Auto) % Neut % (Auto) % Lymph % (Auto) % [place] % (Auto) % Eos % (Auto) % Baso % (Auto) % Neut # (Auto) (1.4-6.5) K/uL Lymph # (Auto) (1.2-3.4) K/uL [place] # (Auto) (0.11-0.59) K/uL Eos # (Auto) (0-0.5) K/uL Baso # (Auto) (0-0.2) K/uL Immature Gran # (Auto) (0.00-0.02) K/uL ABG pH 7.37 (7.35-7.45) ABG pCO2 80 H (35-46) mmHg ABG pO2 113 H (80-95) mmHg ABG HCO3 45 H (19-24) mmol/L ABG O2 Saturation 98.0 H (90-95) % ABG Base Excess 15.9 H (-9-1.8) mEq/L Jayce Test Pos (Pos) VBG pH (7.36-7.41) VBG pCO2 (38-50) mmHg VBG pO2 mmHg VBG HCO3 mmol/L VBG O2 Saturation % VBG Base Excess mEq/L Barometric Pressure 732.2 mm/Hg Oxygen Given 40% Sodium (136-145) mmol/L Potassium (3.5-5.1) mmol/L Chloride (98-107) mmol/L Carbon Dioxide (21-32) mmol/L Anion Gap (3-11) BUN (7-18) mg/dl Creatinine (0.6-1.4) mg/dl Est Cr Clr Drug Dosing ml/min Est GFR ( Amer) ml/min Est GFR (Non-Af Amer) ml/min BUN/Creatinine Ratio (10-20) Glucose (70-99) mg/dl Calcium (8.5-10.1) mg/dl Magnesium (1.8-2.4) mg/dl Vitamin B12 Pending Folate Pending Nasal Screen MRSA (PCR) Pending Adenovirus (PCR) (NotDetected) B. pertussis DNA (PCR) (NotDetected) B.parapertussis DNA PCR (NotDetected) C. pneumoniae DNA (PCR) (NotDetected) Coronavirus OC43 (PCR) (NotDetected) Coronavirus HKU1 (PCR) (NotDetected) Coronavirus 229E (PCR) (NotDetected) SARS-CoV-2 (PCR) (NotDetected) Coronavirus NL63 (PCR) (NotDetected) Human Metapneumovir PCR (NotDetected) Influenza Type A (PCR) (NotDetected) Influenza Type B (PCR) (NotDetected) Urine Legionella Ag M. pneumoniae (PCR) (NotDetected) Parainfluenza 1 (PCR) (NotDetected) Parainfluenza 2 (PCR) (NotDetected) Parainfluenza 3 (PCR) (NotDetected) Parainfluenza 4 (PCR) (NotDetected) RSV (PCR) (NotDetected) Entero/Rhino (PCR) (NotDetected) 06/30/21 06/30/21 06/29/21 Range/Units 07:00 07:00 18:10 WBC 5.80 (4.8-10.8) K/uL RBC 3.77 L (4.7-6.1) M/uL Hgb 11.4 L (14.0-18.0) g/dL Hct 37.8 L (42-52) % MCV 100.3 H (80-100) fL MCH 30.2 (25-34) pg MCHC 30.2 L (32-36) g/dL RDW Std Deviation 57.9 H (36.4-46.3) fL RDW Coeff of Feilcia 15.9 H (11.5-14.5) % Plt Count 223 (130-400) K/uL MPV 8.6 (7.4-10.4) fL Immature Gran % (Auto) 1.6 % Neut % (Auto) 73.8 % Lymph % (Auto) 12.8 % [place] % (Auto) 9.8 % Eos % (Auto) 1.7 % Baso % (Auto) 0.3 % Neut # (Auto) 4.28 (1.4-6.5) K/uL Lymph # (Auto) 0.74 L (1.2-3.4) K/uL [place] # (Auto) 0.57 (0.11-0.59) K/uL Eos # (Auto) 0.10 (0-0.5) K/uL Baso # (Auto) 0.02 (0-0.2) K/uL Immature Gran # (Auto) 0.09 H (0.00-0.02) K/uL ABG pH (7.35-7.45) ABG pCO2 (35-46) mmHg ABG pO2 (80-95) mmHg ABG HCO3 (19-24) mmol/L ABG O2 Saturation (90-95) % ABG Base Excess (-9-1.8) mEq/L Jayce Test (Pos) VBG pH (7.36-7.41) VBG pCO2 (38-50) mmHg VBG pO2 mmHg VBG HCO3 mmol/L VBG O2 Saturation % VBG Base Excess mEq/L Barometric Pressure mm/Hg Oxygen Given Sodium 142 (136-145) mmol/L Potassium 3.9 (3.5-5.1) mmol/L Chloride 97 L (98-107) mmol/L Carbon Dioxide 41 H* (21-32) mmol/L Anion Gap 3.0 (3-11) BUN 21 H (7-18) mg/dl Creatinine 1.07 (0.6-1.4) mg/dl Est Cr Clr Drug Dosing 76.7 ml/min Est GFR ( Amer) 74.0 ml/min Est GFR (Non-Af Amer) 63.9 ml/min BUN/Creatinine Ratio 19.7 (10-20) Glucose 120 H (70-99) mg/dl Calcium 9.0 (8.5-10.1) mg/dl Magnesium 2.2 (1.8-2.4) mg/dl Vitamin B12 Folate Nasal Screen MRSA (PCR) Adenovirus (PCR) Not Detected (NotDetected) B. pertussis DNA (PCR) Not Detected (NotDetected) B.parapertussis DNA PCR Not Detected (NotDetected) C. pneumoniae DNA (PCR) Not Detected (NotDetected) Coronavirus OC43 (PCR) Not Detected (NotDetected) Coronavirus HKU1 (PCR) Not Detected (NotDetected) Coronavirus 229E (PCR) Not Detected (NotDetected) SARS-CoV-2 (PCR) DETECTED A* (NotDetected) Coronavirus NL63 (PCR) Not Detected (NotDetected) Human Metapneumovir PCR Not Detected (NotDetected) Influenza Type A (PCR) Not Detected (NotDetected) Influenza Type B (PCR) Not Detected (NotDetected) Urine Legionella Ag M. pneumoniae (PCR) Not Detected (NotDetected) Parainfluenza 1 (PCR) Not Detected (NotDetected) Parainfluenza 2 (PCR) Not Detected (NotDetected) Parainfluenza 3 (PCR) Not Detected (NotDetected) Parainfluenza 4 (PCR) Not Detected (NotDetected) RSV (PCR) Not Detected (NotDetected) Entero/Rhino (PCR) Not Detected (NotDetected) 06/29/21 06/29/21 Range/Units 15:40 15:15 WBC (4.8-10.8) K/uL RBC (4.7-6.1) M/uL Hgb (14.0-18.0) g/dL Hct (42-52) % MCV (80-100) fL MCH (25-34) pg MCHC (32-36) g/dL RDW Std Deviation (36.4-46.3) fL RDW Coeff of Felicia (11.5-14.5) % Plt Count (130-400) K/uL MPV (7.4-10.4) fL Immature Gran % (Auto) % Neut % (Auto) % Lymph % (Auto) % [place] % (Auto) % Eos % (Auto) % Baso % (Auto) % Neut # (Auto) (1.4-6.5) K/uL Lymph # (Auto) (1.2-3.4) K/uL [place] # (Auto) (0.11-0.59) K/uL Eos # (Auto) (0-0.5) K/uL Baso # (Auto) (0-0.2) K/uL Immature Gran # (Auto) (0.00-0.02) K/uL ABG pH (7.35-7.45) ABG pCO2 (35-46) mmHg ABG pO2 (80-95) mmHg ABG HCO3 (19-24) mmol/L ABG O2 Saturation (90-95) % ABG Base Excess (-9-1.8) mEq/L Jayce Test (Pos) VBG pH 7.30 L (7.36-7.41) VBG pCO2 92 H (38-50) mmHg VBG pO2 32 mmHg VBG HCO3 44 mmol/L VBG O2 Saturation < 60.0 % VBG Base Excess 13.6 mEq/L Barometric Pressure 732.6 mm/Hg Oxygen Given Sodium (136-145) mmol/L Potassium (3.5-5.1) mmol/L Chloride (98-107) mmol/L Carbon Dioxide (21-32) mmol/L Anion Gap (3-11) BUN (7-18) mg/dl Creatinine (0.6-1.4) mg/dl Est Cr Clr Drug Dosing ml/min Est GFR ( Amer) ml/min Est GFR (Non-Af Amer) ml/min BUN/Creatinine Ratio (10-20) Glucose (70-99) mg/dl Calcium (8.5-10.1) mg/dl Magnesium (1.8-2.4) mg/dl Vitamin B12 Folate Nasal Screen MRSA (PCR) Adenovirus (PCR) (NotDetected) B. pertussis DNA (PCR) (NotDetected) B.parapertussis DNA PCR (NotDetected) C. pneumoniae DNA (PCR) (NotDetected) Coronavirus OC43 (PCR) (NotDetected) Coronavirus HKU1 (PCR) (NotDetected) Coronavirus 229E (PCR) (NotDetected) SARS-CoV-2 (PCR) (NotDetected) Coronavirus NL63 (PCR) (NotDetected) Human Metapneumovir PCR (NotDetected) Influenza Type A (PCR) (NotDetected) Influenza Type B (PCR) (NotDetected) Urine Legionella Ag Pending M. pneumoniae (PCR) (NotDetected) Parainfluenza 1 (PCR) (NotDetected) Parainfluenza 2 (PCR) (NotDetected) Parainfluenza 3 (PCR) (NotDetected) Parainfluenza 4 (PCR) (NotDetected) RSV (PCR) (NotDetected) Entero/Rhino (PCR) (NotDetected) Diagnostic Findings Chest X-Ray 06/29/21 01:27 XR chest 1V portable HISTORY: Shortness of breath. COMPARISON: Chest 05/27/2021. FINDINGS: There is mild elevation the right hemidiaphragm, unchanged. Patchy bilateral airspace opacities have slightly progressed within the right lung. No pneumothorax. The heart remains mildly enlarged. There is diffuse interstitial thickening, unchanged. IMPRESSION: Patchy bilateral airspace opacities which have slightly progressed within the right upper lobe. This likely represents a viral pneumonia. ACT 112: Negative or not required by law. Electronically signed by: Surya Bonds M.D. 06/29/2021 7:36 AM Chest CTA 06/29/21 04:10 CT angio chest PE protocol CLINICAL HISTORY: Shortness of breath and difficulty breathing. History of Covid pneumonia. Evaluate for pulmonary embolus COMPARISON STUDY: Portable chest from 06/29/2021 CT DOSE: 1198.26 mGy.cm TECHNIQUE: CT Angio of the chest was performed.followed by image post processing with coronal, and sagittal MIP reformats. Contrast Volume: Optiray 320, 119 ml FINDINGS: Vasculature: There is homogeneous perfusion of the pulmonary vasculature bilaterally. No intraluminal filling defects or evidence for pulmonary embolus is seen. Airway: The airway is clear. No endobronchial lesion is identified. Lungs: Extensive interstitial and alveolar opacities are present bilaterally which have increased radiographically from previous studies. Findings are most characteristic of a viral type pneumonitis and probable Covid pneumonia. No confluent alveolar opacities or air bronchograms are seen. There is right lower lobe atelectasis/collapse. Pleura: There is no evidence for pleural effusion. There is no evidence for pneumothorax. Mediastinum: There is no evidence for pathologic adenopathy. The heart is enlarged. Coronary artery calcification is present. The thoracic aorta is within normal limits. There is no evidence for pericardial effusion. Upper abdomen:The adrenal glands are normal bilaterally. Osseous structures: There is no acute osseous pathology. Impression: 1. No CTA evidence for pulmonary embolus. 2. Extensive interstitial and alveolar opacities most characteristic of a viral type pneumonitis and probable Covid 19 pneumonia. 3. Right basilar atelectasis. 4. Cardiomegaly and coronary artery calcification. ACT 112: Negative or not required by law. Electronically signed by: Boogie Cade M.D. 06/29/2021 7:17 AM PG Care Time/CCT Total # of Minutes Spent Total Time Spent with Patient: Total time spent is greater than 50% in coordination of care (as documented) at patient's floor/unit and/or counseling patient: Coding Level of Care Code 22072 Subseq Hosp Care Lvl 3 Diagnoses Dyspnea R06.00 Pneumonia J18.9 Laterality: bilateral Lung location: unspecified part of lung Pneumonia type: due to unspecified organism Hypoxia R09.02 Heart failure I50.9 PVC (premature ventricular contraction) I49.3 2019 novel coronavirus-infected pneumonia ([facility]) U07.1; J12.82 Bladder cancer C67.9 COPD (chronic obstructive pulmonary disease) J44.9 Anemia D64.9 (1) Pneumonia Laterality: bilateral Lung location: unspecified part of lung Pneumonia type: due to unspecified organism Qualified Code(s): J18.9 - Pneumonia, unspecified organism
[2021-06-30] MEDS ORDERED: hydrALAZINE HCL 20 MG/ML VIAL IV STA (11:31)
[2021-06-30] MEDS: FAMOTIDINE 20 MG TAB PO SCH ×2 (12:27→21:55)
[2021-06-30] MEDS: ENOXAPARIN INJ 40 MG/0.4 ML SYR SQ SCH ×2 (12:27→21:55)
[2021-06-30] MEDS ORDERED: hydrALAZINE HCL 20 MG/ML VIAL IV PRN (12:28)
[2021-06-30 12:37] LABS: Base Excess ABG 15.9 mEq/L (-9-1.8); HCO3 ABG 45 mmol/L (19-24); PCO2 ABG 80 mmHg (35-46); PO2 ABG 113 mmHg (80-95); pH ABG 7.37 (7.35-7.45)
[2021-06-30 12:38] LABS: Allen Test Pos (Pos)
[2021-06-30] MEDS ORDERED: FUROSEMIDE 40 MG/4 ML VIAL IV ONE ×3 (14:30→22:00)
[2021-06-30] MEDS: LOSARTAN POTASSIUM 25 MG TAB PO SCH (15:11)
[2021-06-30] MEDS: CEROVITE ADV FORMULA TAB PO SCH (15:12)
[2021-06-30] MEDS ORDERED: acetaZOLAMIDE 250 MG in SYRINGE 0 ML IV ONE ×2 (16:00→17:00)
[2021-06-30] MEDS ORDERED: ALBUT/IPRATROP 3MG/0.5MG NEB 3 ML VIAL NEB PRN (16:03)
[2021-06-30 16:13] LABS: Folate (Folic Acid) > 20.00 ng/ml (>5.38); Vitamin B12 515 pg/ml (193-986)
--- NOTE | 2021-06-30 16:21 | Pulmonary Consultation ---
Date of Consultation June 30, 2021 Assessment & Plan (1) 2019 novel coronavirus-infected pneumonia (NCIP): (2) COPD (chronic obstructive pulmonary disease): (3) Acute and chronic respiratory failure with hypoxia: (4) Metabolic alkalosis: Patient likely with progressive findings of COVID-19 viral pneumonia. We will start the patient on prednisone 40 mg daily. Discussed with the hospitalist as well about starting the patient on empiric treatment for PJP. Continue as needed diuretics as you are doing. Recommend continued use of noninvasive ventilation at all times while sleeping. He appears to have significant metabolic alkalosis as a compensation to his chronic respiratory ac idosis. We will hold on further Diamox therapy at this time and encourage compliance with noninvasive ventilation. Follow up fungitell and aspergillus studies. Can consider bronchoscopy in the next 1 to 2 days if no clinical improvement to evaluate for inflammatory cells and other atypical infectious process. Thank you for the consultation. Pulmonary will continue to follow along with you. History of Present Illness Reason for Consultation: Acute hypoxemic respiratory failure in the setting of recent COVID-19 viral pneumonia Attending Physician: Robert Mccain DO History of Present Illness 81-year-old male with a past medical history of BPH with bladder cancer status post prostatectomy, diverting urostomy, lumbar disc disease, hypertension, GERD, CHF and morbid obesity who presents to the hospital due to increasing shortness of breath. He also had increasing lower extremity edema. He was discharged from the hospital May on oxygen and after being diagnosed with COVID-19 in April. He received monoclonal antibodies on 05/22/2021. Echo completed on 07/16/2021 with mild concentric LVH and an elevated RVSP of 40 to 50 mmHg. Chest x-ray completed 05/17/2021 reviewed with diffuse airspace opacities consistent with viral pneumonia .Repeat chest x-ray in 06/29 with progressive findings and more significant opacities in the right upper lobe. Chest CTA 06/29/2021 with extensive interstitial and alveolar opacities consistent with viral pneumonia. Right basilar atelectasis was also seen. Pro- Ángel checked 07/16/2021 was unremarkable. CRP elevated to 6.18. COVID-19 testing on this admission was positive on 06/29/2021. Otherwise bio fire testing negative. Beta glucan pending. Patient endorses smoking cigarettes for 45 years roughly 3 packs/day. Notes that he quit 27 years ago. Allergies Allergy/AdvReac Type Severity Reaction Status Date / Time fish oil Allergy Intermediate Hives Unverified 06/29/21 07:28 amoxicillin Allergy Unknown Unknown Unverified 06/29/21 07:28 ciprofloxacin Allergy Unknown HIVES Verified 05/27/21 02:33 Home Medications Medication Instructions Recorded Confirmed Type ascorbic acid (vitamin C) 1,000 mg 1 g PO DAILY@1200 05/27/21 06/29/21 History tablet (Vitamin C) budesonide 0.25 mg/2 mL suspension 0.25 mg INHALATION Q6 PRN 05/27/21 06/29/21 History for nebulization (Pulmicort) famotidine 20 mg tablet 20 mg PO BID 05/27/21 06/29/21 History hydroxyzine HCl 25 mg tablet 25 mg PO TID PRN 05/27/21 06/29/21 History losartan 25 mg tablet 25 mg PO DAILY@1200 05/27/21 06/29/21 History multivitamin 1 tab PO DAILY@1200 05/27/21 06/29/21 History Oxygen Home #1 ea 05/29/21 Rx Calcium 1000mg Mag 400mg Zinc 25mg 1 tab PO DAILY@1200 06/29/21 06/29/21 History betamethasone, augmented 0.05 % 1 applic TOPICAL TID PRN 06/29/21 06/29/21 History topical cream cholecalciferol (vitamin D3) 25 1,000 unit PO DAILY@1200 06/29/21 06/29/21 History mcg (1,000 unit) capsule clobetasol-emollient 0.05 % 1 applic TOPICAL 3XWK 06/29/21 06/29/21 History topical cream furosemide 40 mg tablet 40 mg PO BID 06/29/21 06/29/21 History hydrocortisone 2.5 % lotion 1 applic TOPICAL TID PRN 06/29/21 06/29/21 History ibuprofen 200 mg tablet 400 mg PO TID PRN 06/29/21 06/29/21 History ketoconazole 2 % shampoo 1 applic TOPICAL 3XWK 06/29/21 06/29/21 History Patient History Medical History (Updated 06/30/21 @ 17:14 by Jorgtio Lopez MD) Acute and chronic respiratory failure with hypoxia GERD (gastroesophageal reflux disease) Hypertension Lower extremity edema Metabolic alkalosis Surgical History History of cataract surgery History of cholecystectomy Family History Grandmother Diabetes Family/Other Diabetes Cancer Brother Cancer Sister Cancer Social History Smoking Status: Never smoker Tobacco Type: Cigarettes Second Hand Exposure: No; Hx Alcohol Use: No Hx Substance Use: No Preferred Language: Vietnamese Communication Ability: Effective Hose Tubing Backer Required: No Beliefs That Will Affect Care: None marital status: Current Living Situation: Spouse Current Living Situation Comment: at home with family current occupational status: retired Feels Safe at Home: Yes Safety Concerns: Feels Safe At This Time Assistive Devices: Oxygen - Continuous Review of Systems Review of Systems: All systems reviewed & are unremarkable except as noted in HPI & below Physical Exam Physical Exam: Constitutional: Morbidly obese appearing male sitting up in the stretcher. Eyes: Pupils are equal round and reactive to light. Conjunctivae are normal. Anicteric sclera. Ears nose, mouth and throat: NC in place Neck: Trachea is midline. Visual inspection is normal. Respiratory: Diminished lung sounds b/l. Mild accessory muscle use. Cardiovascular: Regular rate and rhythm. No murmurs. No edema. Gastrointestinal: Normal bowel sounds, soft, nontender and nondistended. No hepatosplenomegaly noted. Musculoskeletal: Strength is 5 out of 5 in the upper and lower extremities. Skin: No rashes, warm dry and intact. Neurologic: No obvious focal neurological deficits seen. Psychiatric: Alert and oriented x3 with a euthymic affect. Results & Data Results & Data ([facility]) Vital Signs (Past 12 Hours) Vital Signs Pulse Pulse Resp BP BP Pulse Ox 06/30/21 14:40 21 97 06/30/21 14:35 30 H 82 L 06/30/21 14:30 98 H 25 H 173/97 H 89 L 06/30/21 14:00 96 H 21 96 06/30/21 13:30 94 H 20 143/76 H 97 06/30/21 13:00 89 19 98 06/30/21 12:30 83 18 144/80 H 96 06/30/21 12:14 92 H 92 H 24 94 06/30/21 12:00 95 H 18 97 06/30/21 11:30 92 H 16 98 06/30/21 11:00 80 16 145/72 H 98 06/30/21 10:40 90 22 95 06/30/21 10:38 89 22 95 06/30/21 10:30 92 H 18 143/73 H 93 06/30/21 10:00 92 H 23 89 L 06/30/21 09:40 101 H 35 H 91 06/30/21 09:30 100 H 25 H 152/114 H 91 06/30/21 09:20 111 H 37 H 97 06/30/21 09:00 65 L 06/30/21 08:50 102 H 90 06/30/21 08:40 84 L 06/30/21 08:30 22 84 L 06/30/21 08:00 90 18 97 06/30/21 07:30 92 H 25 H 96 06/30/21 07:15 91 H 22 88 L 06/30/21 07:00 93 H 18 138/75 94 06/30/21 06:30 91 H 14 93 06/30/21 05:34 95 H 22 130/86 95 PG Care Time/CCT Total # of Minutes Spent Total Time Spent with Patient: Total time spent is greater than 50% in coordination of care (as documented) at patient's floor/unit and/or counseling patient: Coding Level of Care Code 42825 Initial Inpt Care Lvl 3 Diagnoses 2019 novel coronavirus-infected pneumonia (NCIP) U07.1; J12.82 COPD (chronic obstructive pulmonary disease) J44.9 Acute and chronic respiratory failure with hypoxia J96.21 Metabolic alkalosis E87.3
--- NOTE | 2021-06-30 16:27 | XRay Report ---
XR chest 1V portable HISTORY: f/u hypoxia COMPARISON: Chest 06/29/2021. FINDINGS: No pneumothorax. No pleural effusions. The heart remains mildly enlarged. There is persiste nt elevation the right hemidiaphragm. Bilateral airspace opacities and interstitial thickening remain s unchanged. This consistent with a multifocal viral pneumonia. IMPRESSION: No change in the multifocal airspace opacities and interstitial thickening likely representing a jose maria l pneumonia. ACT 112: Negative or not required by law. Electronically signed by: Surya Bonds M.D. 06/30/2021 4:26 PM
[2021-06-30 16:48] LABS: BUN Creatinine Ratio 18.9 (10-20); Calcium 9.5 mg/dl (8.5-10.1); Creatinine Clr Calc Pharmacy 70.9 ml/min; Est GFR (African American) 66.4 ml/min; Est GFR (Non-African American) 57.3 ml/min; Potassium 3.7 mmol/L (3.5-5.1)
[2021-06-30] MEDS: predniSONE 20 MG TAB PO SCH (17:10)
[2021-06-30] MEDS: SULFA/TRIMETH 80/16MG/ML 320 MG in DEXTROSE 5% 500 ML IV SCH (17:52)
[2021-07-01] MEDS: ALBUTEROL 0.5% NEB SOLN 2.5 MG/0.5 ML VIAL NEB SCH ×4 (01:13→20:50)
[2021-07-01] MEDS: SULFA/TRIMETH 80/16MG/ML 320 MG in DEXTROSE 5% 500 ML IV SCH ×3 (02:31→21:22)
[2021-07-01] MEDS: BUDESONIDE 0.25 MG/2 ML VIAL (PULMICORT) INH SCH ×2 (07:10→20:50)
[2021-07-01] MEDS: ENOXAPARIN INJ 40 MG/0.4 ML SYR SQ SCH ×2 (08:15→21:23)
[2021-07-01] MEDS: predniSONE 20 MG TAB PO SCH (08:16)
[2021-07-01] MEDS: FAMOTIDINE 20 MG TAB PO SCH ×2 (08:16→21:24)
[2021-07-01] MEDS: FUROSEMIDE 40 MG/4 ML VIAL IV SCH ×2 (10:23→21:24)
[2021-07-01 11:26] LABS: Basophils # (auto) 0.04 K/uL (0-0.2); Basophils % (auto) 0.3 %; Eosinophils # (auto) 0.02 K/uL (0-0.5); Eosinophils % (auto) 0.2 %; Hematocrit (blood only) 40.9 % (42-52); Hemoglobin 12.7 g/dL (14.0-18.0); Immature Granulocytes # (auto) 0.19 K/uL (0.00-0.02); Immature Granulocytes % (auto) 1.7 %; Lymphocytes # (auto) 0.54 K/uL (1.2-3.4); Lymphocytes % (auto) 4.7 %; Mean Corpuscular Hemoglobin 30.7 pg (25-34); Mean Corpuscular Hgb Conc 31.1 g/dL (32-36); Mean Corpuscular Volume 98.8 fL (80-100); Mean Platelet Volume 9.2 fL (7.4-10.4); Monocytes # (auto) 0.61 K/uL (0.11-0.59); Monocytes % (auto) 5.3 %; Neutrophils % (auto) 87.8 %; Platelet Count 262 K/uL (130-400); RDW Coefficient of Variation 16.1 % (11.5-14.5); RDW Standard Deviation 57.6 fL (36.4-46.3); Red Blood Count 4.14 M/uL (4.7-6.1)
[2021-07-01 11:41] LABS: Oxygen Saturation VBG 70.6 %; pH VBG 7.36 (7.36-7.41)
[2021-07-01 11:58] LABS: BUN Creatinine Ratio 17.2 (10-20); Calcium 9.9 mg/dl (8.5-10.1); Creatinine Clr Calc Pharmacy 56.3 ml/min; Est GFR (African American) 53.9 ml/min; Est GFR (Non-African American) 46.5 ml/min; Magnesium 2.3 mg/dl (1.8-2.4); Potassium 3.4 mmol/L (3.5-5.1)
[2021-07-01] MEDS: CEROVITE ADV FORMULA TAB PO SCH (12:02)
[2021-07-01] MEDS: LOSARTAN POTASSIUM 25 MG TAB PO SCH (12:02)
--- NOTE | 2021-07-01 18:31 | Pulmonology Progress Note ---
Date of Service July 01, 2021 Assessment & Plan (1) 2019 novel coronavirus-infected pneumonia (NCIP): (2) COPD (chronic obstructive pulmonary disease): (3) Acute and chronic respiratory failure with hypoxia: (4) Metabolic alkalosis: Plan: Patient likely with progressive findings of COVID-19 viral pneumonia. Continue prednisone 40 mg for 5 days and wean by 5 mg every other day after initial period Continue treatment for presumptive PJP. Continue as needed diuretics as you are doing. Recommend continued use of noninvasive ventilation at all times while sleeping, although patient refuses.. He appears to have significant metabolic alkalosis as a compensation to his chronic respiratory acidosis. We will hold on further Diamox therapy at this time and encourage compliance with noninvasive ventilation. Follow up fungitell and aspergillus studies. Can consider bronchoscopy in the next 1 to 2 days if no clinical improvement to evaluate for inflammatory cells and other atypical infectious process. Thank you for the consultation. Pulmonary will continue to follow along with you. Admission and Anticipated Discharge Date Admission Date: June 29, 2021 Subjective Oxygen requirements improved compared to yesterday. Denies CP, fevers or chills. Currently on 4LNC. Review of Systems Review of Systems: All systems reviewed & are unremarkable except as noted in HPI & below Physical Exam Physical Exam: Constitutional: Morbidly obese appearing male sitting up in bed Eyes: Pupils are equal round and reactive to light. Conjunctivae are normal. Anicteric sclera. Ears nose, mouth and throat: NC in place Neck: Trachea is midline. Visual inspection is normal. Respiratory: Diminished lung sounds b/l. Mild accessory muscle use. Cardiovascular: Regular rate and rhythm. No murmurs. No edema. Gastrointestinal: Normal bowel sounds, soft, nontender and nondistended. No hepatosplenomegaly noted. Musculoskeletal: Weak diffusely Skin: No rashes, warm dry and intact. Neurologic: No obvious focal neurological deficits seen. Psychiatric: Alert and oriented x3 with a euthymic affect. Results & Data Results & Data ([facility]) Vital Signs (Past 12 Hours) Vital Signs Temp Pulse Pulse Resp BP BP Pulse Ox 07/01/21 16:31 36.7 C 100 H 20 104/60 94 07/01/21 12:27 106 H 20 93 07/01/21 11:23 36.8 C 104 H 20 167/77 H 95 07/01/21 07:25 82 07/01/21 07:24 36.5 C 99 H 20 146/78 H 92 07/01/21 07:11 91 H 19 97 PG Care Time/CCT Total # of Minutes Spent Total Time Spent with Patient: Total time spent is greater than 50% in coordination of care (as documented) at patient's floor/unit and/or counseling patient: Coding Level of Care Code 02423 Subseq Hosp Care Lvl 2 Diagnoses 2019 novel coronavirus-infected pneumonia (NCIP) U07.1; J12.82 COPD (chronic obstructive pulmonary disease) J44.9 Acute and chronic respiratory failure with hypoxia J96.21 Metabolic alkalosis E87.3
--- NOTE | 2021-07-01 19:34 | Hospitalist Progress Note ---
Date of Service July 01, 2021 Assessment & Plan (1) Dyspnea: Plan: Mixed hypoxic and hypercapnic respiratory failurenow much improved -Has chronic hypoxic respiratory failure O2 dependent that appears to be related to his COPD, I suspect he has baseline hypercapnia related to that, as well as possibly MAREN -Acutely with a pneumonia on top of thison Bactrim now (pulmonary input greatly appreciated) -Appears to be improving nicely (2) Pneumonia: Plan: See abovecontinue Bactrim, continue supportive care, follow labs, at this point may not need bronchoscopy (3) Hypoxia: Plan: Much improved now to his baseline oxygen requirement (4) Heart failure: Plan: Unsure of type or compensation; Not much documentation for this diagnosis, noted a smattering of this throughout his history. He normally does not follow up with PCP or specialists here ECHO LV systolic function normal Mild LVH, RVSP at 40-50mmHg -- no PE on CT but suspect longstanding elevated R pressures and unfortunately never had sleep study as outpatient Appears stable in this regard (5) PVC (premature ventricular contraction): Plan: No runs, no couplets, unifocal No CP, trop negative (6) 2019 novel coronavirus-infected pneumonia (NCIP): Plan: It is quite possible that having Covid, and the necessary treatments there of, led to a degree of immune suppression allowing the current pneumonia to ensue (7) Bladder cancer: Plan: With diverting urostomy- 2014 -No acute issues (8) COPD (chronic obstructive pulmonary disease): Plan: Unclear of this diagnosis or who is managing as no notes available to review - He is a former smoker 2-1/2 packs for >30 years- quit in 1993 - Albuterol nebulizers scheduled - Pulmicort resupule nebs continued -Add LAMA Would rec PFT and sleep study as outpatient as patient very likely with sleep apnea and chronic respiratory failure --> Arrange pulm /fu at d/c (9) Anemia: Plan: prior hgbs in 13-14 range Now macrocytic and endorsed LE neuropathy symptoms, however, B12 and folate are okay Plan: DVT prophylaxisLovenox Dispostable on medical, appears much improved overalldid well with PT, as he continues to improve, hopefully home in the next day or so. Admission and Anticipated Discharge Date Admission Date: June 29, 2021 Subjective Feeling better. Breathing better. Eating and drinking okay. Has been up and out of bed, although he notes he feels somewhat weak on his feet. Notes that he is normally on 4 L of oxygen at home. Review of Systems Review of Systems: All systems reviewed & are unremarkable except as noted in HPI & below Physical Exam Physical Exam: In general he is awake and alert oriented pleasant no distress. HEENT normocephalic atraumatic mucous membranes moist. Breathing shows his lungs to be overall surprisingly clear to auscultation without rales rhonchi or wheezes good effort, no accessory muscle use. Neuro shows cranial nerves II through XII be grossly intact gross motor and sensory are intact. Skin without rashes pallor or icterus. Results & Data Results & Data ([facility]) Vital Signs (Past 12 Hours) Vital Signs Temp Pulse Resp BP BP Pulse Ox 07/01/21 16:31 98.1 F 100 H 20 104/60 94 07/01/21 12:27 106 H 20 93 07/01/21 11:23 98.2 F 104 H 20 167/77 H 95 PG Care Time/CCT Total # of Minutes Spent Total Time Spent with Patient: Total time spent is greater than 50% in coordination of care (as documented) at patient's floor/unit and/or counseling patient: Coding Level of Care Code 10018 Subseq Hosp Care Lvl 3 Diagnoses Dyspnea R06.00 Pneumonia J18.9 Laterality: bilateral Lung location: unspecified part of lung Pneumonia type: due to unspecified organism Hypoxia R09.02 Heart failure I50.9 PVC (premature ventricular contraction) I49.3 2019 novel coronavirus-infected pneumonia (NCIP) U07.1; J12.82 Bladder cancer C67.9 COPD (chronic obstructive pulmonary disease) J44.9 Anemia D64.9 (1) Pneumonia Laterality: bilateral Lung location: unspecified part of lung Pneumonia type: due to unspecified organism Qualified Code(s): J18.9 - Pneumonia, unspecified organism
[2021-07-02] MEDS: ALBUTEROL 0.5% NEB SOLN 2.5 MG/0.5 ML VIAL NEB SCH ×3 (01:31→12:35)
[2021-07-02] MEDS: SULFA/TRIMETH 80/16MG/ML 320 MG in DEXTROSE 5% 500 ML IV SCH ×2 (01:38→10:29)
[2021-07-02 07:00] LABS: Basophils # (auto) 0.02 K/uL (0-0.2); Basophils % (auto) 0.2 %; Eosinophils # (auto) 0.04 K/uL (0-0.5); Eosinophils % (auto) 0.4 %; Hematocrit (blood only) 37.9 % (42-52); Hemoglobin 11.8 g/dL (14.0-18.0); Immature Granulocytes % (auto) 2.2 %; Lymphocytes # (auto) 1.05 K/uL (1.2-3.4); Lymphocytes % (auto) 11.4 %; Mean Corpuscular Hgb Conc 31.1 g/dL (32-36); Mean Corpuscular Volume 96.4 fL (80-100); Mean Platelet Volume 8.8 fL (7.4-10.4); Monocytes # (auto) 0.72 K/uL (0.11-0.59); Monocytes % (auto) 7.8 %; Neutrophils # (auto) 7.21 K/uL (1.4-6.5); Platelet Count 268 K/uL (130-400); RDW Coefficient of Variation 16.3 % (11.5-14.5); RDW Standard Deviation 57.6 fL (36.4-46.3); Red Blood Count 3.93 M/uL (4.7-6.1); White Blood Count 9.24 K/uL (4.8-10.8)
[2021-07-02 07:25] LABS: Calcium 9.4 mg/dl (8.5-10.1); Creatinine Clr Calc Pharmacy 55.9 ml/min; Est GFR (African American) 53.5 ml/min; Est GFR (Non-African American) 46.1 ml/min; Potassium 3.7 mmol/L (3.5-5.1)
[2021-07-02] MEDS: BUDESONIDE 0.25 MG/2 ML VIAL (PULMICORT) INH SCH (07:45)
[2021-07-02] MEDS ORDERED: UMECLIDINIUM BROMIDE 62.5MCG/BLISTER 7 PUFFS/INHALER INH SCH (09:00)
[2021-07-02] MEDS ORDERED: FUROSEMIDE 40 MG TAB PO SCH (09:00)
--- NOTE | 2021-07-02 10:14 | Pulmonology Progress Note ---
Date of Service July 02, 2021 Assessment & Plan (1) 2019 novel coronavirus-infected pneumonia (NCIP): (2) COPD (chronic obstructive pulmonary disease): (3) Acute and chronic respiratory failure with hypoxia: (4) Metabolic alkalosis: Plan: Attending: Dr. Tobias Impression: This is an 81-year-old male that follows with Dr. Stinson for primary care and lives in [facility]. The patient states he does not have a manager gallery. He also denies any previous history of pulmonary function testing. Patient was admitted to [facility] on 06/29/2021 and found to have Covid-19 pneumonia. Patient is on chronic supplemental oxygen at home at 4 L/min via nasal cannula. He has no long-term steroid use other than topical hydrocortisone for dermatological reasons. Patient was found to be hypercarbic on admission. He has been refusing positive air pressure/NIV. He is back to his baseline supplemental oxygen requirement of 4 L/min via nasal cannula. Patient has no obvious distress on examination. Has transition from dexamethasone to prednisone 40 mg for 5 days and then wean. He was suggested by Dr. Lopez the patient be started for presumptive P ANTHONY. He has been discharged home on Bactrim pending serology results for Aspergillus and Fungitell. Bio fire was negative other than for SARSCOV2. Recommendations: 1. COVID-19 viral pneumonia: * Continue with prednisone taper 40 mg p.o. daily for 5 days followed by a decrease of 5 mg every other day until weaned off. * Continue treatment with Bactrim until Aspergillus and Fungitell results are delivered. * Sputum sample with heavy normal harley * Patient is back to baseline of supplemental oxygen 4 L/min via nasal cannula. * Patient feels ready for discharge home. * Positive serology for Covid on 06/29/2021 - isolation until 07/13/2021 2. Presumed COPD: * 10-itbe-ldem of tobacco abuse history with cigarettes. Patient quit smoking in 1993 * Patient denies history of pulmonary function testing * Follows with Dr. Stinson as PCP. States that he has albuterol HFA and albuterol nebulizer at home * Would recommend patient be discharged on Brio Ellipta (ICS/LABA) * Discontinue as needed Pulmicort at home and prescribe DuoNeb every 6 hours as needed for wheezes or shortness of breath * Offered patient outpatient follow-up with our pulmonary office for PFTs. Patient denies and wishes to continue to follow with Dr. Stinson. * As a patient has an obvious relation with Dr. Stinson, would recommend that he discuss pulmonary consultation for PFTs with the patient and make appropriate referral. 3. 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 Obesity: * This most likely contributes to patient's overall respiratory status * Would advise limitation on calories and exercise as tolerated with focus on weight loss The patient does not appear to need bronchoscopy at this time. Would await pending serology as listed above. Can follow-up with pulmonary clinic if patient so desires Thank you for including us in the care of this patient. The pulmonary service will sign off at this time. Please call with any further questions or concerns. Admission and Anticipated Discharge Date Admission Date: June 29, 2021 Subjective Attending: Dr. Tobias Patient seen and examined at bedside in room 2 511. He states that he has been back at his baseline supplemental oxygen of 4 L/min since yesterday. He denies any discomfort. He has says that he has no chest pain at this time. He does have some wheezes on exam but attributes this to mucus production this morning. He reports he does not follow with a manager gallery and has not had pulmonary function testing to his knowledge. He does state that he has a nebulizer machine at home but does not use it. He also states that he has "puffers" at home but is not use those. He is unable to tell me what inhalers he does have. He denies any fever, chills, sweats, rigors. Mucus this morning was clear to yellow. He denies any green sputum. He has no other acute complaints and states that he is anxious for discharge home with his family. Review of Systems Review of Systems: All systems reviewed & are unremarkable except as noted in Subjective Physical Exam Physical Exam: GENERAL : No acute distress. Pleasant and talkative. Laying in bed. EYES: No icterus, gaze conjugate NOSE: No evidence of epistaxis. Nasal cannula in place MOUTH: No lesions or candidiasis. Mucosa moist NECK: Supple LUNGS: Scattered expirational wheezes. Some bibasilar Rales. No rhonchi appreciated. HEART: Regular, rate controlled ABDOMEN: Soft, NT, ND, BS Present EXTREMITIES: No LE edema, pedal pulses intact NEURO: A&OX3 Results & Data Results & Data ([facility]) Vital Signs (Past 12 Hours) Vital Signs Temp Pulse Resp BP BP Pulse Ox 07/02/21 07:47 79 20 90 07/02/21 07:38 36.6 C 91 H 22 145/74 H 95 07/01/21 23:20 36.9 C 100 H 20 150/76 H 95 Laboratory Results 07/02/21 05:54 07/02/21 05:54 COVID-19 Results 06/29/21 18:10 SARS-CoV-2 (PCR) DETECTED A* 06/29/21 06/30/21 07/01/21 15:15 12:26 11:00 ABG pH 7.37 ABG pCO2 80 H ABG pO2 113 H ABG HCO3 45 H ABG O2 Saturation 98.0 H ABG Base Excess 15.9 H VBG pH 7.30 L 7.36 VBG pCO2 92 H 68 H VBG pO2 32 40 VBG HCO3 44 37 VBG O2 Saturation < 60.0 70.6 VBG Base Excess 13.6 9.0 Diagnostic Findings No further diagnostic imaging since 06/30/2021. Chest x-ray at that time showed multifocal air space opacities and interstitial thickening likely representing viral pneumonia. PG Care Time/CCT Total # of Minutes Spent Total Time Spent with Patient: Total time spent is greater than 50% in coordination of care (as documented) at patient's floor/unit and/or counseling patient: 30 minutes Coding Level of Care Code 41863 Subseq Hosp Care Lvl 2 Diagnoses 2019 novel coronavirus-infected pneumonia (NCIP) U07.1; J12.82 COPD (chronic obstructive pulmonary disease) J44.9 Acute and chronic respiratory failure with hypoxia J96.21 Metabolic alkalosis E87.3 Time Spent (min) 30
[2021-07-02] MEDS: ENOXAPARIN INJ 40 MG/0.4 ML SYR SQ SCH (10:25)
[2021-07-02] MEDS: predniSONE 20 MG TAB PO SCH (10:26)
[2021-07-02] MEDS: FAMOTIDINE 20 MG TAB PO SCH (10:26)
[2021-07-02] MEDS: LOSARTAN POTASSIUM 25 MG TAB PO SCH (11:47)
[2021-07-02] MEDS: CEROVITE ADV FORMULA TAB PO SCH (11:48)
[2021-07-02] MEDS ORDERED: MULTIVITAMIN TAB PO SCH (12:00)
[2021-07-02] MEDS ORDERED: CHOLECALCIFEROL 1,000 UNITS 25 MCG TAB PO SCH (12:00)
--- NOTE | 2021-07-02 19:40 | Discharge Summary ---
Date of Service July 02, 2021 Admission HPI Per Admitting Provider 81 YOM with past medical history of: BPH with bladder cancer s/p prostatectomy and diverting urostomy, lumbar disk disease, HTN, COPD, GERD, CHF, Morbid obesity, COVID 19 (05/27/21). Patient comes in to the hosptial today for increased dyspnea at rest and exertion, and increase in edema to lower extremities. Patient states that after he was discharged on 05/29 with home oxygen at 4L he was feeling well and was progressing up until 2-3 weeks ago. At that time he started to get increased dyspnea when going about 30 feet to the bathroom and needed to increase his oxygen to 6L at home. He reports that he also had an increase in cought that was productive. The sputum went from thick clear to thick and green. He was seen by his PCP he reports and was placed on Azithromycin which his states finished on - (no documentation to review on this). He also was placed on Lasix 40mg which he has not noticed a difference. The patient's states he puts allot of salt on his food all the time. He denies any orthopnea but when he does lay flat he coughs allot, but is able to sleep like that. In the EMD the patient had routine labs drawn, CXR and CTA of the chest performed. He was given 20mg Lasix IV at 0430 this morning with 600ml out of his urostomy bag. He is on oxymask at 5L currently with SPO2 94-96%, he had an SPO2 of 88-90% on 4LNC. He is conversationally dyspneic and has pitting edema up to legs bilaterally. He carries a diagnosis of COPD but no PFTs available and is on Pulmicort at home without a ASHELY or long acting anticholinergic/muscarinic. His CTA of this chest was negative for PE and remains with ground glass opacities bilateral with atelectasis and small plueral effusion. Patient will be admitted to continue work up for dyspnea and rule in/out infectious process, continue to diurese but increase his IV Lasix dose, PT/OT consult. I have added on aspergillus, Fungitell, and PCT with CRP for further evaluation of other causes of infective pneumonia. For his hospital course in April for his COVID admission he did receive monoclonal antibodies prior to hospitalization on 05/22, once admitted in 05/27/21 he was started on Decadron 6mg IV and transitioned to PO at discharge, nebulizers, and Rocephin and Azithromycin. This was discontinued at discharge. He was also noted to have a right lower extremity cellulitis that continued to be treated post discharge with Cefdinir. Patient COVID test was repeated in EMD and is: COVID test on admission is NEGATIVE Principal Diagnosis Acute hypoxic and hypercapnic respiratory failure superimposed on chronic hypoxic and suspected hypercapnic respiratory failuredue to pneumonia (suspected pneumocystis) Discharge Exam In general he is awake and alert pleasant no distress. HEENT normocephalic atraumatic mucous membranes moist. Breathing unlabored no accessory muscle use good effort, lungs overall clear except for faint wheeze mid right lung field otherwise no rales rhonchi or wheezes somewhat diminished air entry but good effort. Skin shows no rashes no pallor or icterus. Neuro without focal deficits. Discharge Data Allergies Allergy/AdvReac Type Severity Reaction Status Date / Time fish oil Allergy Intermediate Hives Unverified 06/29/21 07:28 amoxicillin Allergy Unknown Unknown Unverified 06/29/21 07:28 ciprofloxacin Allergy Unknown HIVES Verified 05/27/21 02:33 Consultations 06/29/21 08:03 ED Decision to Admit Stat 06/30/21 08:49 Consult Pulmonology Routine Ordered Studies 06/29/21 04:10 CT angio chest PE protocol Stat Hospital Course (1) Acute and chronic respiratory failure with hypoxia: 1) Dyspnea: Plan: Mixed hypoxic and hypercapnic respiratory failurenow much improved -Has chronic hypoxic respiratory failure O2 dependent that appears to be related to his COPD, I suspect he has baseline hypercapnia related to that, as well as possibly MAREN -Acutely with a pneumonia on top of thison Bactrim now (pulmonary input greatly appreciatedsuspecting pneumocystis due to immune compromise surrounding Covid and necessary treatments) -Appears to be improving nicelystable for home on Bactrim. Literature reviewed, dosing discussed with clinical pharmacist as well2 tabs of DS 3 times daily to 4 times daily appeared to be the appropriate dosing range for this diagnosis and his mass, will check basic metabolic panel frequently given the high end dosing. Treat presumptively for 14 days, although some literature suggest the treatment may need to be extended further (2) Pneumonia: Plan: See abovecontinue Bactrim, stable for home, close follow-up (3) Hypoxia: Plan: Much improved now to his baseline oxygen requirementand stable on this for 2 days (4) Heart failure: Plan: Unsure of type or compensation; Not much documentation for this diagnosis, noted a smattering of this throughout his history. He normally does not follow up with PCP or specialists here ECHO LV systolic function normal Mild LVH, RVSP at 40-50mmHg -- no PE on CT but suspect longstanding elevated R pressures and unfortunately never had sleep study as outpatient Appears stable in this regard (5) PVC (premature ventricular contraction): Plan: No runs, no couplets, unifocal No CP, trop negative (6) 2019 novel coronavirus-infected pneumonia (NCIP): Plan: It is quite possible that having Covid, and the necessary treatments there of, led to a degree of immune suppression allowing the current pneumonia to ensue (7) Bladder cancer: Plan: With diverting urostomy- 2014 -No acute issues (8) COPD (chronic obstructive pulmonary disease): Plan: Severity of diagnosis not entirely clear, although given his chronic oxygen requirement I would suspect fairly severe, but he may also have obesity hypoventilation/MAREN on top of that -For now manages severe COPD with LAMA/LABA/ICS -Outpatient PFTs -Outpatient sleep study Would rec PFT and sleep study as outpatient as patient very likely with sleep apnea and chronic respiratory failure (9) Anemia: Plan: prior hgbs in 13-14 range Now macrocytic and endorsed LE neuropathy symptoms, however, B12 and folate are okay Plan: DVT prophylaxisLovenox utilized during his stay Dispostable for home as above. Close PCP follow-up. Basic metabolic panel probably every 2 to 3 days while he is on the high dosing of Bactrim for the suspected pneumocystis. PFTs, sleep study in the near future as an outpatient Total Time Total Time Spent Total Time Spent (In Minutes): >30 Discharge Plan Discharge Items Patient Disposition: Home - Home Health Services Reason For Visit: DYSNPEA Discharge Diagnosis: pneumonia Activity: Resume your previous activity Non-emergency contact: Primary Care Provider Call non-emergency contact if: you have any medication questions Follow-up/Referrals: Noam Briones, [Primary Care Provider] - (PLEASE CALL YOUR PRIMARY CARE PROVIDER WITHIN 7-10 DAYS TO SCHEDULE A FOLLOW-UP DISCHARGE APPOINTMENT) Diet: Low Sodium (2gm) Addtl Attending Provider Instructions: Pneumonia -It appears that you got sicker from a pneumonia that grew in your lungs after having had Covid -Our biggest suspicion would be the types of bacteria that grow when someone is more immune compromised, as is generally the case after Covid and the things that we need to do to treat it -Fortunately you are getting better nicely, and it appears quite safe to get you home -We are treating with antibiotics, but we have fungal tests pendingthey often take several days to come back, if they are positive, then Dr. Stinson might need to change you from antibiotics to antifungals; however, since you are showing nice improvement on antibiotics, it is most likely bacterial -For the types of bacteria we are suspicious of, Bactrim is the antibiotic that works far and away the best, but we have to use fairly high dosingand so we would recommend lab monitoringhave Dr. Stinson check a basic metabolic panel (BMP) on 07/04/2021, and a presumption of having it checked 2-3 times a week while you are on the course of antibiotics (for the next 14 days) -We will also have you on a prednisone taper40 mg for 5 days, then 35 mg for 2 days, 30 mg for 2 days, 25 mg for 2 days, 20 mg for 2 days, 15 mg for 2 days, 10 mg for 2 days, and then stop COPD As it relates to her COPD, we believe you would do better on a more refined inhaler regimenthere are 3 main types of inhalers we utilize for COPD, and you appear like a person who would benefit from having all 3. -To that end, we have prescribed Breo as a once a day inhaler (it has an inhaled steroid, replacing your Pulmicort, as well as a long-acting albuterol like medicine), and Umeclidinium as a separate once a day inhaler that has a type of medicine called "anticholinergic" but also helps reduce lung inflammation -Because both the Breo and your Pulmicort have steroid, it would be okay to stop using the Pulmicort -We have prescribed DuoNebs (albuterol/ipratropium) that you can use up to every 6 hours as needed for shortness of breath/wheezing -Continue to use oxygen as you have been, you appear to be the kind of person who will likely do better looking for a pulse ox reading in the low 90s rather than mid to high 90s (something like 90 to 92%) -As we have discussed, you also appear like you probably have sleep apneaand a sleep study, and treatment of sleep apnea if you do in fact have it, would likely help your breathing [id number] as wellto that end we have set the referral process in motion To Do: -Take the Bactrim (antibiotic) 2 tablets 3 times a day -Take the steroids (prednisone) once a day as directed, with a taper of the dose as above outlined -Stop using the Pulmicort, and instead take the Breo and Umeclidinium both 1 inhalation once a day, every day -Use the duo nebs up to 4 times a day as needed for shortness of breath/wheezing -Have lab work (basic metabolic panel) checked on 07/04, and then as directed by Dr. Stinson (with an anticipation of having the same lab work checked 2-3 times a week while you are on the Bactrim) -Follow through with the sleep study Pending Studies at Discharge: Yes (tests to evaluate for fungus in your lungs (see below)) Stand-Alone Forms: [facility] [employer], Smoking Cessation Medications and DC Order Prescriptions: New Incruse Ellipta 62.5 mcg/actuation Blister With Device 1 puff inhalation DAILY Qty: 30 RF: 0 Breo Ellipta 100-25 mcg/dose blister with device 1 inh inhalation DAILY Qty: 60 RF: 0 prednisone 10 mg tablet 10 mg PO UD Qty: 50 RF: 0 sulfamethoxazole-trimethoprim [Bactrim DS] 800-160 mg tablet 2 tab PO TID Qty: 84 RF: 0 ipratropium-albuterol 0.5 mg-3 mg(2.5 mg base)/3 mL solution for nebulization 3 ml inhalation Q6H PRN (Reason: wheezing) Qty: 90 RF: 0 Continued multivitamin Tablet 1 tab PO DAILY@1200 RF: 0 ascorbic acid (vitamin C) [Vitamin C] 1,000 mg Tablet 1 g PO DAILY@1200 RF: 0 famotidine 20 mg tablet 20 mg PO BID RF: 0 losartan 25 mg tablet 25 mg PO DAILY@1200 RF: 0 hydroxyzine HCl 25 mg tablet 25 mg PO TID PRN (Reason: Itching) RF: 0 (DME) Oxygen Home Liters Per Minute See Rx Instructions .ROUTE Qty: 1 RF: 0 ketoconazole 2 % shampoo 1 applic TOPICAL 3XWK RF: 0 betamethasone, augmented 0.05 % cream 1 applic TOPICAL TID PRN (Reason: Itching) RF: 0 hydrocortisone 2.5 % Lotion 1 applic TOPICAL TID PRN (Reason: Itching) RF: 0 clobetasol-emollient 0.05 % cream 1 applic TOPICAL 3XWK RF: 0 Calcium 1000mg Mag 400mg Zinc 25mg 1 tab PO DAILY@1200 RF: 0 furosemide 40 mg tablet 40 mg PO BID RF: 0 cholecalciferol (vitamin D3) 25 mcg (1,000 unit) capsule 1,000 unit PO DAILY@1200 RF: 0 Discontinued budesonide [Pulmicort] 0.25 mg/2 mL suspension for nebulization 0.25 mg inhalation Q6 PRN (Reason: Shortness Of Breath Or Wheezing) RF: 0 ibuprofen 200 mg Tablet 400 mg PO TID PRN (Reason: Pain) RF: 0 Discharge Orders: Discharge Order (Routine); Ordered 07/02/21 Ordered By: Robert Mccain Admission Data Admit Date/Time: 06/29/21 09:30 Attending Provider: Robert Mccain Admit Provider: Starr Dailey Primary Care Provider: Noam Briones Other Providers: Reymundo Singh ; Jorgito Lopez ; [facility] Other Interventions: Discharge Summary Assessment (RN) Last Done: 07/02/21 14:25 Coding Level of Care Code D/C DAY MANAGEMENT >30 MINS Diagnoses Acute and chronic respiratory failure with hypoxia J96.21
[2021-07-03 22:42] LABS: Aspergillus Flavus Negative (Negative); Aspergillus Niger Negative (Negative); Fungitell (1-3)-B-D-Glucan 69 pg/mL
--- NOTE | 2021-07-12 09:25 | Coding Query ---
CODING QUERY To promote full compliance with coding requirements relating to patient care, provider participation is requested in all cases of bad credit collector uncertainty. Please assist us with the question(s) below: Coding Question(s): Due to conflicting documentation in the record, your help is needed to determine the Covid-19 Infection/Pneumonia status. There is a positive lab result on the record on the day of admission, 06/29/21, and documentation, as on the ER of, " The patient was diagnosed with COVID-19 in April 2021. He had significant shortness of breath and weakness at that time. He states that the difficulty breathing persisted and he was discharged home on 6 L of oxygen. Patient states that he was diagnosed with pneumonia again at the end of May 2021 and was treated with an oral antibiotic. Over the past 2 days, the patient's weakness is significantly increased and he has become more short of breath", and the H&P documents, "Patient COVID test was repeated in EMD and is: COVID test on admission is NEGATIVE", and, "2019 novel coronavirus-infected pneumonia (NCIP): Plan: COVID negative and >21 days since symptoms - Although part of his dyspnea may be from long haul effects", and, "81 yo male here with acute on chronic respiratory failure with hypoxia and hypercapnia, diffuse infiltrates throughout bilat lungs that may be residual from COVID PNA vs new bacterial PNA vs fungal PNA or atypical PNA, and likely acute on chronic diastolic CHF", then the Pulmonary Consultation documents, "Patient likely with progressive findings of COVID-19 viral pneumonia. We will start the patient on prednisone 40 mg daily. Discussed with the hospitalist as well about starting the patient on empiric treatment for PJP.", and upon Discharge Summary, there is documentation of, "Acute hypoxic and hypercapnic respiratory failure superimposed on chronic hypoxic and suspected hypercapnic respiratory failuredue to pneumonia (suspected pneumocystis)", and "Acutely with a pneumonia on top of thison Bactrim now (pulmonary input greatly appreciatedsuspecting pneumocystis due to immune compromise surrounding Covid and necessary treatments)", and, "2019 novel coronavirus-infected pneumonia (NCIP): Plan: It is quite possible that having Covid, and the necessary treatments there of, led to a degree of immune suppression allowing the current pneumonia to ensue" and, "Addtl Attending Provider Instructions: Pneumonia -It appears that you got sicker from a pneumonia that grew in your lungs after having had Covid -Our biggest suspicion would be the types of bacteria that grow when someone is more immune compromised, as is generally the case after Covid and the things that we need to do to treat it". It is not clear if the patient has COVID-19 Infection, or COVID-19 Pneumonia during this admission in addition to the suspected pneumocystis, or if the patient had no COVID-19 Infection or COVID-19 Pneumonia during the admission. Please clarify below, in your clinical opinion. ( ) COVID-19 Infection, COVID-19 Pneumonia in addition to suspected Pneumocystis during this admission. ( x ) Suspected Pneumocystis, with NO Covid-19 Infection during this admission. ( ) Other: Please Specify biggest suspicion was that covid created the initial insult, but his admission this time was not directly due to covid, but rather due to an opportunistic infection coming on the tail of his lungs having been compromised from covid infection as well as his immune system being down from steroids and baricitinib. thanks Physician's Response(s): Thank you Noreen Parra Principal Diagnosis: "that condition established after study, to be chiefly responsible for occasioning the admission of the patient to the hospital for care." Co-Existing Principal Diagnosis: "when two or more diagnoses equally meet the criteria for principal diagnosis as determined by the circumstances of admission, diagnostic work up, and/or therapy provided, and the Alphabetic Index, Tabular List, or another coding guideline does not provide sequencing direction, any one of the diagnoses may be sequenced first." "When the physician has documented what appears to be a current diagnosis in the body of the record, but has not included the diagnosis in the final diagnostic statement, the physician should be asked whether the diagnosis should be added." (Source Coding Clinic 2 QTR90. p3-4) [facility]
== END 2021-07-02 17:31 | disposition home health service (06) | DRG 177 ==
LOC: ED 22:32 → SUATTDRO 06-29 09:30 → EDINP 06-29 09:30 → 2W 06-29 11:27